=== PATIENT | male | born 1960 | race American Indian/Alaskan Native ===

== ENCOUNTER 2018-02-01 02:12 | Inpatient (IN) | payer MEDICAID ==
[2018-02-01] MEDS ORDERED: NACL 0.9% 1000 ML 1,000 ML IV ONE ×2 (04:04→04:35)
[2018-02-01 04:34] LABS: Basophils # (Auto) 0.1 K/mm3 (0.0-0.1); Basophils % (Auto) 1.3 % (0.0-1.8); Eosinophils # (Auto) 0.1 K/mm3 (0.0-0.4); Eosinophils % (Auto) 1.4 % (0.0-4.3); Hematocrit 44.5 % (35.5-45.6); Hemoglobin 15.3 gm/dl (11.8-15.2); Lymphocytes # (Auto) 2.8 K/mm3 (1.2-5.4); Lymphocytes % (Auto) 45.8 % (13.4-35.0); Mean Corpuscular HGB Conc 34 % (32-34); Mean Corpuscular Hemoglobin 34 pg (28-32); Mean Corpuscular Volume 100 fl (84-94); Monocytes # (Auto) 0.5 K/mm3 (0.0-0.8); Monocytes % (Auto) 7.5 % (0.0-7.3); Platelet Count 260 K/mm3 (140-440); Red Blood Count 4.46 M/mm3 (3.65-5.03); Red Cell Distribution Width 13.9 % (13.2-15.2)
[2018-02-01] MEDS ORDERED: ZOFRAN IV ONE (04:36)
--- NOTE | 2018-02-01 04:43 | Emergency Department Report ---
ED GI Bleed HPI - General Chief complaint: GI Bleed Stated complaint: NOSE BLEED Time Seen by Provider: 02/01/18 04:35 Source: patient Mode of arrival: Ambulatory Limitations: No Limitations - History of Present Illness Initial comments: Patient is 57 years old male was no significant positives medical history but patient does not remember the last time he saw a physician. Patient brought into the ER accompanied by his and daughter after he started vomiting bright blood last night around 9 PM and became more dizzy. Patient denied any melena or hematochezia. Patient and family admitted that he drinks alcohol daily. Patient denied any abdominal pain, chest pain, shortness of breath or fever. MD complaint: gross hematemesis -: Last night Context: alcohol abuse Associated Symptoms: nausea, vomiting - Related Data Home Medications Medication Instructions Recorded Confirmed Last Taken No Known Home Medications [No 02/01/18 02/01/18 Unknown Reported Home Medications] Allergies Allergy/AdvReac Type Severity Reaction Status Date / Time No Known Allergies Allergy Verified 02/01/18 04:37 ED Review of Systems ROS: Stated complaint: NOSE BLEED Other details as noted in HPI Comment: All other systems reviewed and negative Constitutional: denies: chills, fever Respiratory: denies: cough, orthopnea, shortness of breath, SOB with exertion, SOB at rest, wheezing Cardiovascular: denies: chest pain, palpitations, dyspnea on exertion Gastrointestinal: nausea, vomiting. denies: abdominal pain, diarrhea, constipation, hematemesis Genitourinary: denies: urgency, dysuria, frequency, hematuria, discharge Musculoskeletal: denies: back pain Neurological: denies: headache, weakness, numbness, paresthesias, confusion, abnormal gait ED Past Medical Hx - Past Medical History Previous Medical History?: No - Surgical History Past Surgical History?: No - Social History Smoking Status: Current Every Day Smoker Substance Use Type: Alcohol - Medications Home Medications: Home Medications Medication Instructions Recorded Confirmed Last Taken Type No Known Home Medications [No 02/01/18 02/01/18 Unknown History Reported Home Medications] ED Physical Exam - General Limitations: No Limitations General appearance: alert, anxious - Head Head exam: Present: atraumatic, normocephalic, normal inspection - Eye Eye exam: Present: normal appearance, PERRL - ENT ENT exam: Present: mucous membranes dry, other (dried blood in the mouth and nose) - Neck Neck exam: Present: normal inspection, full ROM. Absent: tenderness, meningismus, lymphadenopathy, thyromegaly - Respiratory Respiratory exam: Present: normal lung sounds bilaterally. Absent: respiratory distress, wheezes, rales, rhonchi, stridor, chest wall tenderness, accessory muscle use, decreased breath sounds, prolonged expiratory - Cardiovascular Cardiovascular Exam: Present: tachycardia. Absent: systolic murmur, diastolic murmur - GI/Abdominal GI/Abdominal exam: Present: soft, normal bowel sounds. Absent: distended, tenderness, guarding, rebound, rigid, organomegaly, mass, bruit, pulsatile mass , hernia - Extremities Exam Extremities exam: Present: normal inspection, full ROM, normal capillary refill - Back Exam Back exam: Present: normal inspection, full ROM. Absent: tenderness, CVA tenderness (R), CVA tenderness (L), muscle spasm, paraspinal tenderness, vertebral tenderness - Neurological Exam Neurological exam: Present: alert, oriented X3, CN II-XII intact, normal gait, reflexes normal - Skin Skin exam: Present: warm, intact, normal color ED Course Vital Signs 02/01/18 02/01/18 02/01/18 03:53 04:30 04:46 Temperature 97.7 F Pulse Rate 110 H 99 H Respiratory 18 24 20 Rate Blood Pressure 130/76 125/75 O2 Sat by Pulse 100 87 87 Oximetry - Reevaluation(s) Reevaluation #1: 02/01/18 05:11 I discussed the patient is Dr. Long from gastroenterology, informed about the patient and he stated that he will call the GI team for possible upper GI endoscopy. ED Medical Decision Making - Lab Data Result diagrams: 02/01/18 04:17 02/01/18 04:17 - Radiology Data Radiology results: report reviewed Referring Physician: MICHAEL CORBETT Patient Name: ELISABET ZAVALA Date of : 1960 Sex: Male Report Date: 2018-02-01 Report Status: Finalized Findings [facility] [address] [place] [address] XRay Report Signed Patient: ELISABET ZAVALA MR#: [id number] : 1960 Acct:[id number] Age/Sex: 57 / M ADM Date: 02/01/18 Loc: ED Attending Dr: Ordering Physician: MICHAEL CORBETT Date of Service: 02/01/18 Procedure(s): XR chest 1V ap Accession Number(s): [id number] cc: MICHAEL Corbin Time In Minutes: FINAL REPORT EXAM: XR CHEST 1V AP HISTORY: chest pain TECHNIQUE: AP portable view(s) of the chest obtained. PRIORS: None. FINDINGS: No mediastinal shift. Cardiac silhouette is not enlarged. No pneumothorax or effusion. Lower lung predominant interstitial prominence/reticulation. No focal airspace disease or acute skeletal finding. IMPRESSION: Lower lung predominant interstitial prominence/reticulation may be due to infection, edema or scarring/fibrosis. No focal airspace disease. Transcribed By: MB Dictated By: KURT HERNANDEZ MD Electronically Authenticated By: KURT HERNANDEZ MD Signed Date/Time: 02/01/18504 DD/ 4 TD/TT: 02/01/18504 - Medical Decision Making I discussed the patient is Dr. Sloan, he agreed to admit the patient to medical service. Critical Care Time: Yes Critical care time in (mins) excluding proc time.: 30 Critical care attestation.: If time is entered above; I have spent that time in minutes in the direct care of this critically ill patient, excluding procedure time. ED Disposition Clinical Impression: GI hemorrhage Disposition: OP ADMIT IP TO THIS HOSP Is pt being admited?: Yes Condition: Stable Referrals: PRIMARY CARE, [Primary Care Provider] - 3-5 Days Forms: Accompanied Note
[2018-02-01 04:44] LABS: INR 0.81 (0.87-1.13)
[2018-02-01 04:45] LABS: Partial Thromboplastin Time 24.7 Sec. (24.2-36.6)
[2018-02-01 04:52] LABS: Alanine Aminotransferase 47 units/L (7-56); Albumin 3.9 g/dL (3.9-5); BUN/Creatinine Ratio 14; Blood Urea Nitrogen 7 mg/dL (9-20); Calcium 9.3 mg/dL (8.4-10.2); Hemolysis Index 27; Lipase 49 units/L (13-60)
[2018-02-01] MEDS ORDERED: SANDOSTATIN IV ONE (05:00)
[2018-02-01] MEDS ORDERED: NACL 0.9% IV ONE (05:00)
--- NOTE | 2018-02-01 05:05 | XRay Report ---
FINAL REPORT EXAM: XR CHEST 1V AP HISTORY: chest pain TECHNIQUE: AP portable view(s) of the chest obtained. PRIORS: None. FINDINGS: No mediastinal shift. Cardiac silhouette is not enlarged. No pneumothorax or effusion. Lower lung predominant interstitial prominence/reticulation. No focal airspace disease or acute skeletal finding. IMPRESSION: Lower lung predominant interstitial prominence/reticulation may be due to infection, edema or scarring/fibrosis. No focal airspace disease.
[2018-02-01] MEDS: SandoSTATIN 500 MCG in NACL 0.9% 100 ML IV SCH (05:21)
[2018-02-01] MEDS: PROTONIX 80 MG in NACL 0.9% 100 ML IV SCH ×2 (05:21→19:05)
[2018-02-01] MEDS ORDERED: ZOFRAN IV PRN ×2 (06:24→08:01)
[2018-02-01] MEDS: NACL 0.9% 1000 ML 1,000 ML IV SCH ×3 (06:30→20:26)
[2018-02-01] MEDS ORDERED: WATER FOR IRRIG STERILE ONE (07:00)
[2018-02-01] MEDS ORDERED: WATER FOR IRRIG STERILE IR ONE (07:00)
--- NOTE | 2018-02-01 07:01 | Anesthesia Consultation ---
Anesthesia Consult and Med Hx Date of service: 02/01/18 - Airway Anesthetic Teeth Evaluation: Crowns (multiple gold crowns; denies loose teeth) ROM Head & Neck: Adequate Mental/Hyoid Distance: Adequate Mallampati Class: Class III Intubation Access Assessment: Possibly Difficult - Pulmonary Exam CTA: Yes - Cardiac Exam Cardiac Exam: RRR (tachycardic) - Pre-Operative Health Status ASA Pre-Surgery Classification: ASA3, Emergency Proposed Anesthetic Plan: General - Pulmonary Hx Smoking: Yes (1PPD) Hx Asthma: No Hx Respiratory Symptoms: Yes (hypoxic to 70s on RA; currently mid 90s on 35% venturi mask.) SOB: No Home Oxygen Therapy: No - Cardiovascular System Hx Hypertension: No Hx Heart Attack/AMI: No Hx Angina: No - Central Nervous System Hx Seizures: No CVA: No - Endocrine Hx Renal Disease: No Hx Cirrhosis: No Hx Liver Disease: Yes (Elevated AST; normal coags) Hx Insulin Dependent Diabetes: No Hx Non-Insulin Dependent Diabetes: No Hx Thyroid Disease: No - Hematic Hx Anemia: No - Other Systems Hx Alcohol Use: Yes (up to 3 6-packs daily for 10+ yrs) Hx Substance Use: No Hx Obesity: No - Additional Comments Anesthesia Medical History Comments: 57 yo man PMH EtOH abuse and smoking presenting with hemotosis/hematemesis starting 01/31 1900. Per ED RN, patient has been vomiting and coughing up blood since arrival and has put out 300cc of blood between [id number] today. Given ongoing hematemesis vs hemoptysis, would plan for GETA in OR for planned EGD procedure.
[2018-02-01] MEDS ORDERED: NACL 0.9% 1000 ML 1,000 ML ONE (07:19)
[2018-02-01] MEDS ORDERED: SUBLIMAZE ONE (07:19)
[2018-02-01] MEDS ORDERED: XYLOCAINE MPF 2% ONE (07:19)
[2018-02-01] MEDS ORDERED: QUELICIN ONE (07:19)
[2018-02-01] MEDS ORDERED: DIPRIVAN 10 MG/ML IV ONE (07:20)
[2018-02-01] MEDS ORDERED: VERSED ONE (07:20)
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
[2018-02-01 07:39] LABS: Basophils # (Auto) 0.1 K/mm3 (0.0-0.1); Basophils % (Auto) 0.8 % (0.0-1.8); Eosinophils % (Auto) 0.7 % (0.0-4.3); Hematocrit 33.2 % (35.5-45.6); Hemoglobin 11.8 gm/dl (11.8-15.2); Lymphocytes # (Auto) 1.5 K/mm3 (1.2-5.4); Lymphocytes % (Auto) 23.4 % (13.4-35.0); Mean Corpuscular HGB Conc 36 % (32-34); Mean Corpuscular Hemoglobin 36 pg (28-32); Mean Corpuscular Volume 100 fl (84-94); Monocytes # (Auto) 0.4 K/mm3 (0.0-0.8); Monocytes % (Auto) 6.5 % (0.0-7.3); Platelet Count 220 K/mm3 (140-440); Red Blood Count 3.33 M/mm3 (3.65-5.03); Red Cell Distribution Width 13.9 % (13.2-15.2)
--- NOTE | 2018-02-01 07:39 | History and Physical Report ---
CHIEF COMPLAINT: Vomiting of blood. HISTORY OF PRESENT ILLNESS: The patient is a 57-year-old male who presented with history of vomiting of blood. The patient's symptoms started around 9 p.m. last night and the patient was noted to be feeling dizzy. There was no history of any melena or hematochezia. The patient and family noted that the patient drank some alcohol prior to these symptoms: The patient drinks alcohol daily. There is no history of abdominal pain, no history of shortness of breath or chest pain, or fever. The patient was evaluated in the Emergency Room. PAST MEDICAL HISTORY: Pertinent for alcohol abuse. PAST SURGICAL HISTORY: Unremarkable. FAMILY HISTORY: Family history is noncontributory. SOCIAL HISTORY: The patient smokes cigarettes, drinks alcohol on a regular basis, and does not use illicit drugs. MEDICATIONS: The patient is not on any medication. ALLERGIES: There are no known drug allergies. REVIEW OF SYSTEMS: CONSTITUTIONAL: There is no fever, no chills, no diaphoresis. HEENT: There is no headache or sore throat. CARDIOVASCULAR SYSTEM: There is no chest pain or orthopnea. RESPIRATORY SYSTEM: There is no shortness of breath or cough. GASTROINTESTINAL SYSTEM: Hematemesis noted. No abdominal pain, no diarrhea, no cough, no hematuria or melena. NEUROLOGICAL SYSTEM: Dizziness present. No altered mental status. MUSCULOSKELETAL SYSTEM: There is no joint pain or swelling. DERMATOLOGICAL SYSTEM: There is no skin rash or itching. GENITOURINARY SYSTEM: There is no dysuria, hematuria, or flank pain. Rest of system review is normal. PHYSICAL EXAMINATION: GENERAL: At the time of exam, the patient was found to be alert, oriented x 3 and in mild distress due to hematemesis. VITAL SIGNS: At the time of initial presentation shows temperature of 97.7 degrees Fahrenheit, pulse of 110, respiration 18, blood pressure 130/76, O2 sat of 100% on oxygen. HEENT: Showed pupils to be equal, round, reactive to light and accommodating. Extraocular muscles are intact. The patient's mouth is covered with bright red blood. NECK: Neck is supple with no JVD or carotid bruit. CARDIOVASCULAR: Showed normal first and second heart sounds with no gallops or murmur. RESPIRATORY: Show good air entry on both sides of the lungs with no abnormal breath sounds. GASTROINTESTINAL: Show abdomen to be full, soft, nontender with no organomegaly or rigidity. NEUROLOGIC: Shows no focal deficit. MUSCULOSKELETAL: Show no joint swelling or tenderness. DERMATOLOGICAL: Show no skin rash. GENITOURINARY: Showing no costovertebral angle tenderness. PERTINENT LABORATORY AND IMAGING STUDIES: The patient had chest x-ray done that shows lower lung predominant interstitial prominence/ reticulation which may be due to fibrosis with no focal airspace disease. The patient's lab result shows CBC with normal white count, elevated hemoglobin of 15.3, normal hematocrit of 44.5, and high MCV of 100. CBC differential shows elevated lymphocyte count of 45.8%. The patient's coagulation studies were remarkable. Chemistry was unremarkable. The patient's liver transaminases show elevated AST of 107 and normal ALT of 47 consistent with alcohol abuse. The patient's toxicology showed a high alcohol level of 0.31. DIAGNOSIS: Gastrointestinal bleed. PLAN OF CARE: 1. The patient will be admitted to ICU because of active gastrointestinal bleed. We will continue the GI consult with Dr. Bang requested by the Emergency Room physician with the plan of possible endoscopy this morning. 2. We will have hemoglobin and hematocrit checked every 6 hours x 3 more levels. 3. The patient will continue IV octreotide started in the Emergency Room and also continue IV Protonix drip ordered in the Emergency Room. The patient will be on IV Zofran 4 mg every 6 hours as needed for nausea and vomiting and will be on IV normal saline at 150 mL an hour. 4. The patient will be on oxygen by Venturi mask as started in the Emergency Room. Further management of the patient's condition will be dependent on GI consult with plan of endoscopy this morning. The patient will have critical consult with Dr. Zhao for ICU admission for active GI bleed. JOB# [id number] OCN/NTS MTDD
[2018-02-01] MEDS ORDERED: AMIDATE IV ONE (07:43)
--- NOTE | 2018-02-01 07:59 | Anesthesia Day of Surgery ---
Anesthesia Day of Surgery - Day of Surgery Patient Examined: Yes Patient H&P Reviewed: Yes Patient is NPO: Yes
[2018-02-01] MEDS ORDERED: DILAUDID IV PRN (08:01)
--- NOTE | 2018-02-01 08:11 | Post Operative Note ---
Pre-op diagnosis: GI bleed Post-op diagnosis: other (Nose bleed) Findings: 1. Normal EGD with no active bleeding. Good visualization, quincy of greater curve of gastric body precluded by presence of clot. 2. Blood actively running out of nose during EGD. Procedure: EGD Anesthesia: GETA Surgeon: SOFIE VAZQUEZ Estimated blood loss: other (10 ml) Pathology: none Condition: stable Disposition: PACU (Pt needs nasal pack and ENT consult.)
--- NOTE | 2018-02-01 08:24 | Operative Report ---
PROCEDURE: Upper endoscopy. PREOPERATIVE DIAGNOSIS: Gastrointestinal bleed. POSTOPERATIVE DIAGNOSIS: Nosebleed. SEDATION: General anesthesia with intubation. HISTORY: The patient is a 57-year-old man who is alcoholic. He came in with a history of having vomited blood 4 times and coughing blood. He had blood coming out of his nose as well. His hemoglobin is stable at 15 and platelet count is normal. The procedure, indications, risks, and benefits were explained and consent was obtained from the patient's . The patient was placed in left lateral decubitus position and sedated. He was intubated. Video upper endoscope was passed through the mouth and oropharynx into the descending duodenum and then gradually withdrawn with close inspection of mucosa. FINDINGS: 1. Normal appearing esophagus with sharp Z-line located 44 cm from incisors. 2. Normal appearing gastric antrum, fundus, body, and cardia. although good visualization was precluded of the greater curvature of the gastric body due to the presence of clot. No fresh or active blood was noted in the stomach. 3. Normal appearing duodenal bulb and duodenum. The patient tolerated the procedure well without immediate complications. IMPRESSION: 1. Normal upper endoscopy, though poor visualization. No source of blood loss identified. 2. The patient had active bleeding from nose during time of endoscopy while intubated and on his side. RECOMMENDATIONS: 1. ENT consultation and packing of nose. 2. Monitor H and H and transfuse as needed. JOB# [id number] HRC/NTS
[2018-02-01] MEDS ORDERED: NEO SYNEPHRINE/NS Syringe(OR USE) IV ONE ×2 (08:28→08:51)
[2018-02-01] MEDS ORDERED: NACL 0.9% 1000 ML 1,000 ML IV SCH (09:00)
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
--- NOTE | 2018-02-01 09:32 | Post Anesthesia Evaluation ---
- Post Anesthesia Evaluation Airway Patent: Yes (intubated, due to airway bleeding) Stable Respiratory Function: Yes Nausea/Vomiting: No Temp > 96.8F: Yes Pain Manageable: Yes Adequeate Hydration: Yes Anesthesia Complications: No
--- NOTE | 2018-02-01 09:36 | Progress Note ---
Subjective Date of service: 02/01/18 Principal diagnosis: upper airway bleeding Interval history: Pt presented to ED with upper gi/ airway bleeding. Intubated in OR for upper endoscopy procedure to find source of bleeding. Anesthesia decided to keep patient intubated in ICU due to unknown source of bleeding, and to protect the airway. Copious amount of bleeding from mouth and nares noted. Both nares were packed with phenyleprine . Intubated in OR with 7.5 ETT , EBBS, sats 100% in OR. transferred to ICU. Stable, given 2mg of versed, and 100 mcg of fentanyl for procedure. Intubated rapid sequence with SUCC. Gi unable to determine the source of bleed. Objective - Constitutional Vitals: Vital Signs - 12hr 02/01/18 02/01/18 02/01/18 03:53 04:30 04:45 Temperature 97.7 F Pulse Rate 110 H 99 H 98 H Respiratory 18 24 25 H Rate Blood Pressure 130/76 125/75 125/75 O2 Sat by Pulse 100 87 95 Oximetry 02/01/18 02/01/18 02/01/18 04:46 05:01 05:15 Temperature Pulse Rate 97 H 87 Respiratory 20 19 20 Rate Blood Pressure 136/92 135/83 O2 Sat by Pulse 87 89 70 L Oximetry 02/01/18 02/01/18 02/01/18 05:30 05:45 06:00 Temperature Pulse Rate 99 H 104 H 96 H Respiratory 17 15 22 Rate Blood Pressure 133/89 133/89 135/76 O2 Sat by Pulse 83 L 85 95 Oximetry 02/01/18 02/01/18 02/01/18 06:15 06:45 07:00 Temperature Pulse Rate 125 H 113 H 107 H Respiratory 14 29 H 25 H Rate Blood Pressure 135/76 143/128 104/73 O2 Sat by Pulse 96 96 96 Oximetry 02/01/18 07:15 Temperature Pulse Rate 113 H Respiratory 28 H Rate Blood Pressure 93/65 O2 Sat by Pulse 96 Oximetry - Labs CBC & Chem 7: 02/01/18 07:18 02/01/18 04:17 Labs: Abnormal lab results 02/01/18 02/01/18 02/01/18 Range/Units 04:17 04:17 04:17 RBC (3.65-5.03) M/mm3 Hgb 15.3 H (11.8-15.2) gm/dl Hct (35.5-45.6) % MCV 100 H (84-94) fl MCH 34 H (28-32) pg MCHC (32-34) % Lymph % (Auto) 45.8 H (13.4-35.0) % Trinity % (Auto) 7.5 H (0.0-7.3) % PT 11.6 L (12.2-14.9) Sec. INR 0.81 L (0.87-1.13) BUN 7 L (9-20) mg/dL Creatinine 0.5 L (0.8-1.5) mg/dL Glucose 107 H (75-100) mg/dL AST 107 H (5-40) units/L Plasma/Serum Alcohol (0-0.07) % 02/01/18 02/01/18 Range/Units 04:56 07:18 RBC 3.33 L (3.65-5.03) M/mm3 Hgb (11.8-15.2) gm/dl Hct 33.2 L D (35.5-45.6) % MCV 100 H (84-94) fl MCH 36 H (28-32) pg MCHC 36 H (32-34) % Lymph % (Auto) (13.4-35.0) % [place] % (Auto) (0.0-7.3) % PT (12.2-14.9) Sec. INR (0.87-1.13) BUN (9-20) mg/dL Creatinine (0.8-1.5) mg/dL Glucose (75-100) mg/dL AST (5-40) units/L Plasma/Serum Alcohol 0.31 H (0-0.07) %
[2018-02-01] MEDS ORDERED: DIPRIVAN 10 MG/ML 1,000 MG/100 ML BOTTLE IV ONE (10:21)
[2018-02-01] MEDS ORDERED: VASELINE LIP THERAPY TP PRN (10:29)
[2018-02-01] MEDS ORDERED: ARTIFICIAL TEARS OPHTH OINT OU PRN (10:29)
[2018-02-01] MEDS ORDERED: NACL 0.9% 500 ML IV SCH (11:00)
[2018-02-01] MEDS: DIPRIVAN 10 MG/ML 1,000 MG/100 ML BOTTLE IV SCH ×3 (11:01→21:47)
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
[2018-02-01 13:27] LABS: Hematocrit 32.2 % (35.5-45.6); Hemoglobin 11.1 gm/dl (11.8-15.2)
[2018-02-01 17:35] LABS: Hematocrit 31.2 % (35.5-45.6); Hemoglobin 10.7 gm/dl (11.8-15.2)
[2018-02-01] MEDS: ATIVAN IV PRN (20:16)
[2018-02-01] MEDS ORDERED: MIDAZOLAM 100 MG in NACL 0.9% 80 ML IV SCH (21:00)
[2018-02-02 00:40] LABS: Hematocrit 28.3 % (35.5-45.6); Hemoglobin 9.8 gm/dl (11.8-15.2)
--- NOTE | 2018-02-02 02:19 | XRay Report ---
FINAL REPORT EXAM: XR CHEST 1V AP HISTORY: follow up respiratory failure TECHNIQUE: Single AP portable radiograph of the chest was obtained. PRIORS: Chest radiographs dated 01/31/2018. FINDINGS: Interval placement of endotracheal tube. Tip of the endotracheal tube is estimated at 3.5 cm proximal to the diana. Coarse, bilateral interstitial pulmonary markings which are most prominent the right midlung and left lung base. No large pleural effusion. No significant enlargement of the cardiac silhouette. No acute osseous abnormality. IMPRESSION: Interval placement of endotracheal tube, tip approximately 3.5 cm proximal to the diana although tip is partially obscured. Mild interval increase in the right midlung and left greater than right basilar opacities. Differential includes infection, edema or fibrosis.
[2018-02-02] MEDS: NACL 0.9% 1000 ML 1,000 ML IV SCH ×2 (02:43→09:31)
[2018-02-02] MEDS: PROTONIX 80 MG in NACL 0.9% 100 ML IV SCH (03:41)
[2018-02-02] MEDS: SandoSTATIN 500 MCG in NACL 0.9% 100 ML IV SCH (03:41)
[2018-02-02] MEDS: DIPRIVAN 10 MG/ML 1,000 MG/100 ML BOTTLE IV SCH ×2 (03:42→09:36)
--- NOTE | 2018-02-02 09:25 | Gastroenterology Progress Note ---
<ANGELA CARY - Last Filed: 02/02/18 09:28> Assessment and Plan 1.Hematemesis -HGB 9.8 -continue to monitor H/H and transfuse as needed -hold blood thinning medications -s/p EGD with normal results, however blood actively running out of nose during procedure -etiology- most likely swallowed blood due to nose bleed -ENT consult recommended -nasal packing currently in place with no active signs of bleeding -okay to d/c octreotide drip -transition PPI drip to IV daily -continue supportive care 2.ETOH abuse -monitor for DTs -alcohol abstinence discussed with family 3.elevated LFTs -AST 107 (ALT 47, alk phos 55, T.dhara 0.20, lipase 49- WNL) -etiology- mostly likely 2/2 alcohol abuse -will order hepatitis panel and abd U/S -will follow Subjective Date of service: 02/02/18 Principal diagnosis: UGIB Interval history: Patient currently intubated in ICU. Nasal packing in place with no active signs of bleeding overnight or this am per nursing. Objective - Constitutional Vitals: Temp Pulse Resp BP Pulse Ox 99.2 F 106 H 20 135/79 100 02/02/18 08:00 02/02/18 08:20 02/02/18 08:15 02/02/18 08:20 02/02/18 08:20 General appearance: no acute distress, other (sedated and intubated ) - Respiratory Respiratory: bilateral: CTA (anterior) - Cardiovascular Rhythm: other (tachycardia) Heart Sounds: Present: S1 & S2 - Gastrointestinal General gastrointestinal: Present: soft, non-distended, normal bowel sounds - Neurologic Neurological: other (unable to assess) - Labs CBC & Chem 7: 02/02/18 00:17 02/01/18 04:17 Labs: Laboratory Results - last 24 hr 02/01/18 02/01/18 02/01/18 13:04 14:41 17:22 Hgb 11.1 L 10.7 L Hct 32.2 L 31.2 L POC ABG pH 7.330 L POC ABG pCO2 41.0 POC ABG pO2 114 H POC ABG HCO3 21.6 POC ABG Total CO2 23 POC ABG O2 Sat 98 POC ABG Base Excess -4 FiO2 40 02/02/18 02/02/18 00:17 05:28 Hgb 9.8 L Hct 28.3 L POC ABG pH 7.510 H POC ABG pCO2 36.4 POC ABG pO2 129 H POC ABG HCO3 29.1 POC ABG Total CO2 30 POC ABG O2 Sat 99 POC ABG Base Excess 6 FiO2 35 <FRIEDMANHOA SOARES Ruiz - Last Filed: 02/02/18 13:01> Assessment and Plan pt seen and examined. agree with note as above. will d/c octreotide and PPI drip as pt does not have signs of UGI bleeding (nose bleed). US pending for elevated liver enzymes (likely due to alcohol given pattern and history). Objective - Constitutional Vitals: Temp Pulse Resp BP Pulse Ox 99.2 F 111 H 20 135/87 100 02/02/18 08:00 02/02/18 11:15 02/02/18 11:15 02/02/18 11:15 02/02/18 11:15 - Labs CBC & Chem 7: 02/02/18 00:17 02/01/18 04:17 Labs: Laboratory Results - last 24 hr 02/01/18 02/01/18 02/01/18 13:04 14:41 17:22 Hgb 11.1 L 10.7 L Hct 32.2 L 31.2 L POC ABG pH 7.330 L POC ABG pCO2 41.0 POC ABG pO2 114 H POC ABG HCO3 21.6 POC ABG Total CO2 23 POC ABG O2 Sat 98 POC ABG Base Excess -4 FiO2 40 02/02/18 02/02/18 00:17 05:28 Hgb 9.8 L Hct 28.3 L POC ABG pH 7.510 H POC ABG pCO2 36.4 POC ABG pO2 129 H POC ABG HCO3 29.1 POC ABG Total CO2 30 POC ABG O2 Sat 99 POC ABG Base Excess 6 FiO2 35
[2018-02-02] MEDS: PROTONIX IV SCH (09:41)
--- NOTE | 2018-02-02 11:34 | Progress Note ---
Assessment and Plan Acute Hypoxemic Respiratory Failure on MVS Massive Epistaxis (Post Traumatic) s/p EGD no evidence of GIB H/O EtOH Abuse disorder Anemia (Macrocytic) Hypokalemia -Monitor Hand H and hemodynamics closely -Analgesia and agitation management( propofol and fentanyl) -Initiate SATs and SBTs today -Supportive transfusions to keep HgB>7g/dL - ENT consult placed for epistaxis - nutritional support if not extubated today, place OGT and start enteric feeding - VAP bundle addressed - continue GI prophylaxis - EGD reviewed ; no active bleeding - continue other care per attending / other consultants - watch closely for DT's -replace electrolytes as indicated The high probability of a clinically significant, sudden or life-threatening deterioration of the respiratory, hematologic system(s) required my full and direct attention, intervention and personal management. The aggregate critical care time was [35] minutes without overlap. Time includes spent on; [x] Data Review and interpretation [x] Patient assessment and monitoring of vital signs [x] Documentation [x] Medication orders and management Subjective Date of service: 02/02/18 Principal diagnosis: UGIB Interval history: Patient is seen today for: Acute GI Bleeding; EtOH Abuse; Hematemesis; Massive Epistaxis Seen and examined at bedside; 24hour events reviewed; nursing and respiratory care staff consulted; no adverse overnight events reported to me; resting in bed ; remains on MVS; rhino remains in nostrils without active bleeding; No acute overnight events, remains sedated. Discussed in ICU-IDT rounds Objective - Exam Narrative Exam: Constitutional: no acute distress, sedated, other (middle aged AAM normocephalic and atraumatic on MVS) Eyes: non-icteric ENT: oropharynx moist, other (ETT 23 cm TRANG) Neck: supple, no lymphadenopathy, no JVD, other (Rhinos in both nostrils) Effort: mildly labored Ascultation: Bilateral: diminished breath sounds, rhonchi (scant) Percussion: Bilateral: not dull Cardiovascular: regular rate and rhythm, other (No R/M) Gastrointestinal: normoactive bowel sounds, soft, non-tender, non-distended, other (No palpable HSM) Integumentary: other (normal turgor) Extremities: no cyanosis, no edema, pulses normal, no ischemia or petechiae Neurologic: non-focal exam (grossly), pupils equal and round, motor strength normal ( moves all extremities and withdraws to pain) Vital Signs - 12hr 02/01/18 02/01/18 02/01/18 23:43 23:45 23:46 Temperature Pulse Rate 125 H 126 H 125 H Pulse Rate [ Apical] Respiratory 20 21 20 Rate Blood Pressure 120/77 112/82 112/82 O2 Sat by Pulse 100 100 100 Oximetry 02/01/18 02/02/18 02/02/18 23:59 00:00 00:15 Temperature 99.9 F H Pulse Rate 123 H 122 H Pulse Rate [ 123 H Apical] Respiratory 20 20 Rate Blood Pressure 121/77 118/77 O2 Sat by Pulse 100 96 Oximetry 02/02/18 02/02/18 02/02/18 00:30 00:45 01:00 Temperature Pulse Rate 122 H 121 H 120 H Pulse Rate [ Apical] Respiratory 20 20 20 Rate Blood Pressure 125/76 110/82 121/78 O2 Sat by Pulse 99 99 99 Oximetry 02/02/18 02/02/18 02/02/18 01:15 01:30 01:45 Temperature Pulse Rate 120 H 119 H 122 H Pulse Rate [ Apical] Respiratory 20 20 20 Rate Blood Pressure 119/78 119/78 131/81 O2 Sat by Pulse 99 100 99 Oximetry 02/02/18 02/02/18 02/02/18 02:00 02:15 02:30 Temperature Pulse Rate 119 H 119 H 119 H Pulse Rate [ Apical] Respiratory 20 20 20 Rate Blood Pressure 131/81 120/77 111/78 O2 Sat by Pulse 100 100 100 Oximetry 02/02/18 02/02/18 02/02/18 02:45 03:00 03:15 Temperature Pulse Rate 117 H 119 H 119 H Pulse Rate [ Apical] Respiratory 20 20 20 Rate Blood Pressure 110/80 124/84 123/83 O2 Sat by Pulse 100 100 100 Oximetry 02/02/18 02/02/18 02/02/18 03:30 03:45 03:49 Temperature 99.8 F H Pulse Rate 117 H 118 H Pulse Rate [ Apical] Respiratory 20 20 Rate Blood Pressure 123/83 124/84 O2 Sat by Pulse 100 100 Oximetry 02/02/18 02/02/18 02/02/18 04:00 04:13 04:15 Temperature Pulse Rate 118 H 114 H 113 H Pulse Rate [ 118 H Apical] Respiratory 20 20 Rate Blood Pressure 122/79 133/79 133/79 O2 Sat by Pulse 100 100 100 Oximetry 02/02/18 02/02/18 02/02/18 04:30 04:45 05:00 Temperature Pulse Rate 114 H 115 H 114 H Pulse Rate [ Apical] Respiratory 20 20 20 Rate Blood Pressure 131/86 130/89 134/89 O2 Sat by Pulse 100 99 99 Oximetry 02/02/18 02/02/18 02/02/18 05:15 05:30 05:45 Temperature Pulse Rate 110 H 113 H 111 H Pulse Rate [ Apical] Respiratory 20 20 20 Rate Blood Pressure 127/85 122/80 112/79 O2 Sat by Pulse 99 100 100 Oximetry 02/02/18 02/02/18 02/02/18 06:00 06:15 06:30 Temperature Pulse Rate 110 H 108 H 106 H Pulse Rate [ Apical] Respiratory 20 20 20 Rate Blood Pressure 117/80 120/77 122/81 O2 Sat by Pulse 100 99 100 Oximetry 02/02/18 02/02/18 02/02/18 06:45 07:00 07:15 Temperature Pulse Rate 106 H 108 H 106 H Pulse Rate [ Apical] Respiratory 20 20 20 Rate Blood Pressure 129/80 121/75 121/76 O2 Sat by Pulse 99 100 100 Oximetry 02/02/18 02/02/18 02/02/18 07:30 07:45 08:00 Temperature 99.2 F Pulse Rate 108 H 106 H 105 H Pulse Rate [ 106 H Apical] Respiratory 20 20 20 Rate Blood Pressure 125/83 121/82 135/79 O2 Sat by Pulse 100 100 100 Oximetry 02/02/18 02/02/18 02/02/18 08:15 08:20 08:30 Temperature Pulse Rate 106 H 106 H 106 H Pulse Rate [ Apical] Respiratory 20 20 Rate Blood Pressure 135/79 122/82 O2 Sat by Pulse 100 100 100 Oximetry 02/02/18 02/02/18 02/02/18 08:45 09:00 09:15 Temperature Pulse Rate 106 H 107 H 106 H Pulse Rate [ Apical] Respiratory 20 20 20 Rate Blood Pressure 133/79 134/82 129/81 O2 Sat by Pulse 100 100 100 Oximetry 02/02/18 02/02/18 02/02/18 09:30 09:45 10:00 Temperature Pulse Rate 106 H 105 H 111 H Pulse Rate [ Apical] Respiratory 20 20 20 Rate Blood Pressure 132/84 126/82 132/88 O2 Sat by Pulse 100 99 100 Oximetry 02/02/18 02/02/18 02/02/18 10:15 10:30 10:45 Temperature Pulse Rate 109 H 110 H 110 H Pulse Rate [ Apical] Respiratory 20 20 20 Rate Blood Pressure 130/84 130/86 133/88 O2 Sat by Pulse 100 99 99 Oximetry 02/02/18 02/02/18 11:00 11:15 Temperature Pulse Rate 111 H 111 H Pulse Rate [ Apical] Respiratory 20 20 Rate Blood Pressure 134/84 135/87 O2 Sat by Pulse 100 100 Oximetry CBC and BMP: 02/07/18 02:15 02/07/18 02:15 ABG, PT/INR, D-dimer: ABG POC ABG pH 7.510 (7.35-7.45) H 02/02/18 05:28 POC ABG pCO2 36.4 (35-45) 02/02/18 05:28 POC ABG pO2 129 (80-105) H 02/02/18 05:28 POC ABG HCO3 29.1 02/02/18 05:28 POC ABG Total CO2 30 02/02/18 05:28 POC ABG O2 Sat 99 02/02/18 05:28 PT/INR, D-dimer PT 11.6 Sec. (12.2-14.9) L 02/01/18 04:17 INR 0.81 (0.87-1.13) L 02/01/18 04:17 Abnormal lab findings: Abnormal Labs 02/01/18 02/01/18 02/01/18 04:17 04:17 04:17 RBC Hgb 15.3 H Hct MCV 100 H MCH 34 H MCHC Lymph % (Auto) 45.8 H [place] % (Auto) 7.5 H PT 11.6 L INR 0.81 L POC ABG pH POC ABG pO2 BUN 7 L Creatinine 0.5 L Glucose 107 H AST 107 H Plasma/Serum Alcohol 02/01/18 02/01/18 02/01/18 04:56 07:18 13:04 RBC 3.33 L Hgb 11.1 L Hct 33.2 L D 32.2 L MCV 100 H MCH 36 H MCHC 36 H Lymph % (Auto) [place] % (Auto) PT INR POC ABG pH POC ABG pO2 BUN Creatinine Glucose AST Plasma/Serum Alcohol 0.31 H 02/01/18 02/01/18 02/02/18 14:41 17:22 00:17 RBC Hgb 10.7 L 9.8 L Hct 31.2 L 28.3 L MCV MCH MCHC Lymph % (Auto) [place] % (Auto) PT INR POC ABG pH 7.330 L POC ABG pO2 114 H BUN Creatinine Glucose AST Plasma/Serum Alcohol 02/02/18 05:28 RBC Hgb Hct MCV MCH MCHC Lymph % (Auto) [place] % (Auto) PT INR POC ABG pH 7.510 H POC ABG pO2 129 H BUN Creatinine Glucose AST Plasma/Serum Alcohol Chest x-ray: image reviewed Allied health notes reviewed: RT
[2018-02-02] MEDS: D5/0.45NS 1,000 ML IV SCH (11:47)
--- NOTE | 2018-02-02 18:13 | Ultrasound Report ---
FINAL REPORT EXAM: US ABDOMEN COMPLETE HISTORY: elevated LFTs TECHNIQUE: Grayscale and color-flow imaging of the abdomen was performed. Comparison: None FINDINGS: Pancreas: The posterior body and tail of the pancreas are not well visualized due to artifact. The visualized portion the pancreas is unremarkable. The pancreatic duct is normal caliber (2.5 millimeters). There is a nonshadowing echogenic focus in the region of the pancreatic duct that measures approximately 3 millimeters. This is of unclear etiology. Possible small calcification. Upper abdominal aorta: (2.6 centimeters). Liver: Demonstrates homogeneous echogenicity. There is no demonstration of a focal mass. Right kidney: Measures 11.2 centimeters in the maximal craniocaudal dimension. There is no demonstration of hydronephrosis, renal calculi or renal mass. Gallbladder: Moderately distended and contains gallstones. The gallbladder wall is normal thickness (2.1 millimeters). There is no definite evidence of pericholecystic fluid. Common bile duct: Normal caliber (3.2 millimeters). Left kidney: Measures 11.4 centimeters in the maximal craniocaudal dimension. There is no demonstration of hydronephrosis, renal calculi or solid mass. There appears to be an approximately 12 millimeter left renal cyst. No free fluid is demonstrated in the upper abdomen. IMPRESSION: 1. Gallstones within the gallbladder. No ultrasound evidence of acute cholecystitis. 2. Left renal cyst. No evidence of hydronephrosis. 3. Upper abdominal aorta upper limits of normal caliber to mildly dilated. 4. Possible small calcification in the region of the normal caliber pancreatic duct. The pancreas is incompletely imaged. If further imaging is required, CT abdomen may be helpful.
[2018-02-03] MEDS: D5/0.45NS 1,000 ML IV SCH ×2 (00:48→20:27)
[2018-02-03 05:17] LABS: Basophils # (Auto) 0.1 K/mm3 (0.0-0.1); Basophils % (Auto) 0.7 % (0.0-1.8); Eosinophils % (Auto) 0.3 % (0.0-4.3); Hemoglobin 8.6 gm/dl (11.8-15.2); Lymphocytes # (Auto) 1.4 K/mm3 (1.2-5.4); Lymphocytes % (Auto) 10.9 % (13.4-35.0); Mean Corpuscular HGB Conc 35 % (32-34); Mean Corpuscular Hemoglobin 34 pg (28-32); Mean Corpuscular Volume 100 fl (84-94); Monocytes # (Auto) 0.7 K/mm3 (0.0-0.8); Monocytes % (Auto) 5.8 % (0.0-7.3); Platelet Count 123 K/mm3 (140-440); Red Blood Count 2.51 M/mm3 (3.65-5.03); Red Cell Distribution Width 13.3 % (13.2-15.2)
--- NOTE | 2018-02-03 05:23 | XRay Report ---
FINAL REPORT PROCEDURE: XR CHEST 1V AP TECHNIQUE: Chest radiograph anteroposterior view. CPT 59152 HISTORY: follow up respiratory failure COMPARISON: No prior studies are available for comparison. FINDINGS: Heart: Normal. Mediastinum/Vessels: Normal. Lungs/Pleural space: The lungs are expanded. There are right upper lobe infiltrates and left lower lobe infiltrates. There are no effusions or pneumothoraces.. Bony thorax: Bony structures are intact.. Life support devices: There is an endotracheal tube in the mid trachea.. IMPRESSION: Heart size is normal. The lungs are expanded. There are right upper lobe infiltrates and left lower lobe infiltrates. There are no effusions or pneumothoraces.. There is an endotracheal tube in the mid trachea..
[2018-02-03 05:42] LABS: Alanine Aminotransferase 21 units/L (7-56); Albumin 2.6 g/dL (3.9-5); BUN/Creatinine Ratio 12; Blood Urea Nitrogen 6 mg/dL (9-20); Calcium 7.8 mg/dL (8.4-10.2); Hemolysis Index 5
[2018-02-03] MEDS: DIPRIVAN 10 MG/ML 1,000 MG/100 ML BOTTLE IV SCH ×2 (05:44→19:32)
[2018-02-03 05:54] LABS: Hepatitis A Antibody IgM Non-Reactive (NonReactive); Hepatitis B Core IgM Non-Reactive (NonReactive); Hepatitis B Surface Antigen Non-Reactive (Negative); Hepatitis C Virus Antibody Reactive (NonReactive)
--- NOTE | 2018-02-03 09:08 | Progress Note ---
Assessment and Plan Acute Hypoxemic Respiratory Failure on MVS Massive Epistaxis (Post Traumatic) Possible G.I. Bleed H/O EtOH Abuse Anemia (Macrocytic) Hypokalemia - reduce set rate to 12/min and reduced TV to 450 mls - begin daiys SBT's soon thereafter - ABG after 2 hours on PSV - continue daily SAT's - ENT consult placed for epistaxis - place OGT and begin tube feeds - stop IVF - nutrition consult placed - VAP bundle addressed - replace potassium and check Magnesium - continue GI prophylaxis - EGD reviewed ; no active bleeding (manage per GI recs otherwise) - continue other care per attending / other consultants - watch closely for DT's .... re-evaluate in am & prn The high probability of a clinically significant, sudden or life-threatening deterioration of the respiratory, hematologic system(s) required my full and direct attention, intervention and personal management. The aggregate critical care time was [40] minutes without overlap. Time includes spent on; [x] Data Review and interpretation [x] Patient assessment and monitoring of vital signs [x] Documentation [x] Medication orders and management Subjective Date of service: 02/03/18 Principal diagnosis: Acute GI Bleeding; EtOH Abuse; Hematemesis Interval history: Patient is seen today for: Acute GI Bleeding; EtOH Abuse; Hematemesis; Massive Epistaxis Seen and examined at bedside; 24hour events reviewed; nursing and respiratory care staff consulted; no adverse overnight events reported to me; resting in bed ; remains on MVS; rhino remains in nostrils without active bleeding; he nods his head "NO" to pain question Objective Vital Signs - 12hr 02/02/18 02/02/18 02/02/18 21:15 21:30 21:45 Temperature Pulse Rate 116 H 118 H 119 H Pulse Rate [ Apical] Pulse Rate [ From Monitor] Respiratory 21 21 20 Rate Blood Pressure 125/78 129/79 122/81 O2 Sat by Pulse 98 99 97 Oximetry 02/02/18 02/02/18 02/02/18 22:00 22:15 22:30 Temperature Pulse Rate 117 H 112 H 104 H Pulse Rate [ Apical] Pulse Rate [ From Monitor] Respiratory 20 17 20 Rate Blood Pressure 119/80 110/72 119/74 O2 Sat by Pulse 100 100 100 Oximetry 08/22/18 08/22/18 08/22/18 22:45 23:00 23:15 Temperature Pulse Rate 113 H 108 H 112 H Pulse Rate [ Apical] Pulse Rate [ From Monitor] Respiratory 20 20 20 Rate Blood Pressure 123/75 119/77 116/77 O2 Sat by Pulse 98 100 99 Oximetry 02/02/1818 18 23:19 23:30 23:45 Temperature Pulse Rate 111 H 101 H 103 H Pulse Rate [ Apical] Pulse Rate [ From Monitor] Respiratory 20 20 20 Rate Blood Pressure 116/77 119/76 124/72 O2 Sat by Pulse 100 100 99 Oximetry 02/03/18 02/03/18 02/03/18 00:00 00:15 00:28 Temperature 99.6 F Pulse Rate 103 H 104 H 102 H Pulse Rate [ 103 H Apical] Pulse Rate [ From Monitor] Respiratory 20 20 Rate Blood Pressure 124/72 116/73 120/73 O2 Sat by Pulse 100 99 99 Oximetry 02/03/18 02/03/18 02/03/18 00:30 00:45 01:00 Temperature Pulse Rate 104 H 104 H 104 H Pulse Rate [ Apical] Pulse Rate [ From Monitor] Respiratory 20 20 20 Rate Blood Pressure 120/73 116/71 116/71 O2 Sat by Pulse 100 99 100 Oximetry 02/03/18 02/03/18 02/03/18 01:15 01:30 01:45 Temperature Pulse Rate 108 H 105 H 107 H Pulse Rate [ Apical] Pulse Rate [ From Monitor] Respiratory 20 16 20 Rate Blood Pressure 117/75 132/72 120/75 O2 Sat by Pulse 100 100 100 Oximetry 02/03/18 02/03/18 02/03/18 02:00 02:15 02:30 Temperature Pulse Rate 106 H 111 H 104 H Pulse Rate [ Apical] Pulse Rate [ From Monitor] Respiratory 20 20 20 Rate Blood Pressure 118/74 132/80 116/71 O2 Sat by Pulse 100 100 100 Oximetry 02/03/18 02/03/18 02/03/18 02:45 03:00 03:15 Temperature Pulse Rate 104 H 103 H 103 H Pulse Rate [ Apical] Pulse Rate [ From Monitor] Respiratory 20 20 20 Rate Blood Pressure 113/72 118/72 115/72 O2 Sat by Pulse 100 100 99 Oximetry 02/03/18 02/03/18 02/03/18 03:30 03:45 04:00 Temperature Pulse Rate 104 H 103 H 104 H Pulse Rate [ 105 H Apical] Pulse Rate [ From Monitor] Respiratory 20 20 20 Rate Blood Pressure 120/73 121/72 119/73 O2 Sat by Pulse 99 99 100 Oximetry 02/03/18 02/03/18 02/03/18 04:15 04:31 04:45 Temperature Pulse Rate 108 H 103 H 103 H Pulse Rate [ Apical] Pulse Rate [ From Monitor] Respiratory 20 20 20 Rate Blood Pressure 131/75 131/75 131/75 O2 Sat by Pulse 99 100 99 Oximetry 02/03/18 02/03/18 02/03/18 05:00 05:15 05:30 Temperature Pulse Rate 100 H 100 H 103 H Pulse Rate [ Apical] Pulse Rate [ From Monitor] Respiratory 17 20 18 Rate Blood Pressure 124/80 126/84 119/79 O2 Sat by Pulse 100 100 Oximetry 02/03/18 02/03/18 02/03/18 05:45 06:00 06:15 Temperature Pulse Rate 104 H 104 H 99 H Pulse Rate [ Apical] Pulse Rate [ From Monitor] Respiratory 20 20 20 Rate Blood Pressure 120/77 131/82 128/80 O2 Sat by Pulse 100 100 100 Oximetry 02/03/18 02/03/18 02/03/18 06:30 06:45 06:55 Temperature Pulse Rate 105 H 103 H 99 H Pulse Rate [ Apical] Pulse Rate [ From Monitor] Respiratory 18 20 Rate Blood Pressure 142/82 118/76 118/76 O2 Sat by Pulse 100 100 100 Oximetry 02/03/18 02/03/18 02/03/18 07:00 07:15 07:30 Temperature Pulse Rate 99 H 98 H 105 H Pulse Rate [ Apical] Pulse Rate [ From Monitor] Respiratory 20 16 16 Rate Blood Pressure 119/76 127/76 133/82 O2 Sat by Pulse 100 99 100 Oximetry 02/03/18 02/03/18 02/03/18 07:45 08:00 08:15 Temperature 98.8 F Pulse Rate 109 H 101 H 107 H Pulse Rate [ Apical] Pulse Rate [ 101 H From Monitor] Respiratory 15 18 19 Rate Blood Pressure 125/82 124/77 116/77 O2 Sat by Pulse 99 100 100 Oximetry 02/03/18 08:30 Temperature Pulse Rate 98 H Pulse Rate [ Apical] Pulse Rate [ From Monitor] Respiratory 18 Rate Blood Pressure 134/80 O2 Sat by Pulse 100 Oximetry Constitutional: no acute distress, alert, other (middle aged AAM normocephalic and atraumatic on MVS) Eyes: non-icteric ENT: oropharynx moist, other (ETT 23 cm TRANG) Neck: supple, no lymphadenopathy, no JVD, other ([place] in both nostrils) Effort: mildly labored Ascultation: Bilateral: diminished breath sounds, rhonchi (scant) Percussion: Bilateral: not dull Cardiovascular: regular rate and rhythm, other (No R/M) Gastrointestinal: normoactive bowel sounds, soft, non-tender, non-distended, other (No palpable HSM) Integumentary: other (poor turgor) Extremities: no cyanosis, no edema, pulses normal, no ischemia or petechiae Neurologic: normal mental status, non-focal exam (grossly), pupils equal and round, motor strength normal and Psychiatric: mood appropriate, affect normal CBC and BMP: 02/03/18 04:51 02/03/18 04:51 ABG, PT/INR, D-dimer: ABG POC ABG pH 7.501 (7.35-7.45) H 02/03/18 07:20 POC ABG pCO2 39.1 (35-45) 02/03/18 07:20 POC ABG pO2 90 (80-105) 02/03/18 07:20 POC ABG HCO3 30.6 02/03/18 07:20 POC ABG Total CO2 32 02/03/18 07:20 POC ABG O2 Sat 98 02/03/18 07:20 PT/INR, D-dimer PT 11.6 Sec. (12.2-14.9) L 02/01/18 04:17 INR 0.81 (0.87-1.13) L 02/01/18 04:17 Abnormal lab findings: Abnormal Labs 02/01/18 02/01/18 02/01/18 04:17 04:17 04:17 WBC RBC Hgb 15.3 H Hct MCV 100 H MCH 34 H MCHC Plt Count Lymph % (Auto) 45.8 H [place] % (Auto) 7.5 H Seg Neutrophils % Seg Neutrophils # PT 11.6 L INR 0.81 L POC ABG pH POC ABG pCO2 POC ABG pO2 Potassium BUN 7 L Creatinine 0.5 L Glucose 107 H Calcium AST 107 H Total Protein Albumin Plasma/Serum Alcohol Hepatitis C Antibody 02/01/18 02/01/18 02/01/18 04:56 07:18 13:04 WBC RBC 3.33 L Hgb 11.1 L Hct 33.2 L D 32.2 L MCV 100 H MCH 36 H MCHC 36 H Plt Count Lymph % (Auto) [place] % (Auto) Seg Neutrophils % Seg Neutrophils # PT INR POC ABG pH POC ABG pCO2 POC ABG pO2 Potassium BUN Creatinine Glucose Calcium AST Total Protein Albumin Plasma/Serum Alcohol 0.31 H Hepatitis C Antibody 02/01/18 02/01/18 02/01/18 14:08 14:41 17:22 WBC RBC Hgb 10.7 L Hct 31.2 L MCV MCH MCHC Plt Count Lymph % (Auto) [place] % (Auto) Seg Neutrophils % Seg Neutrophils # PT INR POC ABG pH 7.287 L 7.330 L POC ABG pCO2 50.0 H POC ABG pO2 54 L 114 H Potassium BUN Creatinine Glucose Calcium AST Total Protein Albumin Plasma/Serum Alcohol Hepatitis C Antibody 02/02/18 02/02/18 02/03/18 00:17 05:28 04:51 WBC RBC Hgb 9.8 L Hct 28.3 L MCV MCH MCHC Plt Count Lymph % (Auto) [place] % (Auto) Seg Neutrophils % Seg Neutrophils # PT INR POC ABG pH 7.510 H POC ABG pCO2 POC ABG pO2 129 H Potassium BUN Creatinine Glucose Calcium AST Total Protein Albumin Plasma/Serum Alcohol Hepatitis C Antibody Reactive A 02/03/18 02/03/18 02/03/18 04:51 04:51 07:20 WBC 12.9 H RBC 2.51 L Hgb 8.6 L Hct 25.0 L MCV 100 H MCH 34 H MCHC 35 H Plt Count 123 L Lymph % (Auto) 10.9 L [place] % (Auto) Seg Neutrophils % 82.3 H Seg Neutrophils # 10.6 H PT INR POC ABG pH 7.501 H POC ABG pCO2 POC ABG pO2 Potassium 3.0 L D BUN 6 L Creatinine 0.5 L Glucose 114 H Calcium 7.8 L D AST 42 H Total Protein 5.6 L D Albumin 2.6 L Plasma/Serum Alcohol Hepatitis C Antibody Chest x-ray: image reviewed (ETT in good position; RUL & LL infiltrates likely aspiration related) Allied health notes reviewed: nursing
[2018-02-03] MEDS: KCL 10MEQ/100ML 10 MEQ/100 ML BAG IV SCH ×3 (09:49→12:08)
[2018-02-03] MEDS: PROTONIX IV SCH (09:50)
--- NOTE | 2018-02-03 11:12 | Gastroenterology Progress Note ---
<RAEANNANGELANAHEED Arnold - Last Filed: 02/03/18 11:18> Assessment and Plan 1.Hematemesis -HGB 8.6 -continue to monitor H/H and transfuse as needed -hold blood thinning medications -s/p EGD with normal results, however blood actively running out of nose during procedure -etiology- most likely swallowed blood due to nose bleed -nasal packing in place, ENT consult pending - no active signs of bleeding overnight or this am per nursing -continue PPI and supportive care 2.ETOH abuse -monitor for DTs -alcohol abstinence discussed with family 3.elevated LFTs -LFTs stable -abd U/S showed gallstones with no evidence of cholecystitis or liver mass -hepatitis C antibody positive- will order VL and genotype -etiology- likey 2/2 ETOH abuse and HCV -further evaluation and treatment as outpatient -continue supportive care -no further GI recommendations at this time -will sign off, please call if needed Subjective Date of service: 02/03/18 Principal diagnosis: Acute GI Bleeding; EtOH Abuse; Hematemesis Interval history: Patient alert but remains intubated. Family at beside. No active signs of bleeding overnight or this am per nursing. Nasal packing still in place. Objective - Constitutional Vitals: Temp Pulse Resp BP Pulse Ox 98.8 F 112 H 19 117/72 97 02/03/18 08:00 02/03/18 10:30 02/03/18 10:30 02/03/18 10:30 02/03/18 10:30 General appearance: no acute distress - Respiratory Respiratory: bilateral: CTA - Cardiovascular Rhythm: other (tachycardia) - Gastrointestinal General gastrointestinal: Present: soft, non-distended, normal bowel sounds - Labs CBC & Chem 7: 02/03/18 04:51 02/03/18 04:51 Labs: Laboratory Results - last 24 hr 02/01/18 02/03/18 02/03/18 14:08 04:51 04:51 WBC 12.9 H RBC 2.51 L Hgb 8.6 L Hct 25.0 L MCV 100 H MCH 34 H MCHC 35 H RDW 13.3 Plt Count 123 L Lymph % (Auto) 10.9 L [place] % (Auto) 5.8 Eos % (Auto) 0.3 Baso % (Auto) 0.7 Lymph # 1.4 [place] # 0.7 Eos # 0.0 Baso # 0.1 Seg Neutrophils % 82.3 H Seg Neutrophils # 10.6 H POC ABG pH 7.287 L POC ABG pCO2 50.0 H POC ABG pO2 54 L POC ABG HCO3 23.9 POC ABG Total CO2 25 POC ABG O2 Sat 83 POC ABG Base Excess -3 FiO2 40 Sodium Potassium Chloride Carbon Dioxide Anion Gap BUN Creatinine Estimated GFR BUN/Creatinine Ratio Glucose Calcium Total Bilirubin AST ALT Alkaline Phosphatase Total Protein Albumin Albumin/Globulin Ratio Hepatitis A IgM Ab Non-reactive Hep Bs Antigen Non-reactive Hep B Core IgM Ab Non-reactive Hepatitis C Antibody Reactive A 02/03/18 02/03/18 04:51 07:20 WBC RBC Hgb Hct MCV MCH MCHC RDW Plt Count Lymph % (Auto) [place] % (Auto) Eos % (Auto) Baso % (Auto) Lymph # [place] # Eos # Baso # Seg Neutrophils % Seg Neutrophils # POC ABG pH 7.501 H POC ABG pCO2 39.1 POC ABG pO2 90 POC ABG HCO3 30.6 POC ABG Total CO2 32 POC ABG O2 Sat 98 POC ABG Base Excess 7 FiO2 35 Sodium 137 Potassium 3.0 L D Chloride 100.9 Carbon Dioxide 27 Anion Gap 12 BUN 6 L Creatinine 0.5 L Estimated GFR > 60 BUN/Creatinine Ratio 12 Glucose 114 H Calcium 7.8 L D Total Bilirubin 1.00 AST 42 H ALT 21 Alkaline Phosphatase 36 Total Protein 5.6 L D Albumin 2.6 L Albumin/Globulin Ratio 0.9 Hepatitis A IgM Ab Hep Bs Antigen Hep B Core IgM Ab Hepatitis C Antibody <HOA FRIEDMAN - Last Filed: 02/03/18 13:31> Assessment and Plan pt seen and examined. agree with note above. no signs of gi bleeding. will need f/u in GI clinic after discharge for liver disease from hep c/alcohol management. will s/o, please call as needed. Objective - Constitutional Vitals: Temp Pulse Resp BP Pulse Ox 99.2 F 110 H 19 130/81 99 02/03/18 12:00 02/03/18 11:06 02/03/18 10:30 02/03/18 11:06 02/03/18 11:06 - Labs CBC & Chem 7: 02/03/18 04:51 02/03/18 04:51 Labs: Laboratory Results - last 24 hr 02/01/18 02/03/18 02/03/18 14:08 04:51 04:51 WBC 12.9 H RBC 2.51 L Hgb 8.6 L Hct 25.0 L MCV 100 H MCH 34 H MCHC 35 H RDW 13.3 Plt Count 123 L Lymph % (Auto) 10.9 L [place] % (Auto) 5.8 Eos % (Auto) 0.3 Baso % (Auto) 0.7 Lymph # 1.4 [place] # 0.7 Eos # 0.0 Baso # 0.1 Seg Neutrophils % 82.3 H Seg Neutrophils # 10.6 H POC ABG pH 7.287 L POC ABG pCO2 50.0 H POC ABG pO2 54 L POC ABG HCO3 23.9 POC ABG Total CO2 25 POC ABG O2 Sat 83 POC ABG Base Excess -3 FiO2 40 Sodium Potassium Chloride Carbon Dioxide Anion Gap BUN Creatinine Estimated GFR BUN/Creatinine Ratio Glucose Calcium Total Bilirubin AST ALT Alkaline Phosphatase Total Protein Albumin Albumin/Globulin Ratio Hepatitis A IgM Ab Non-reactive Hep Bs Antigen Non-reactive Hep B Core IgM Ab Non-reactive Hepatitis C Antibody Reactive A 02/03/18 02/03/18 04:51 07:20 WBC RBC Hgb Hct MCV MCH MCHC RDW Plt Count Lymph % (Auto) [place] % (Auto) Eos % (Auto) Baso % (Auto) Lymph # [place] # Eos # Baso # Seg Neutrophils % Seg Neutrophils # POC ABG pH 7.501 H POC ABG pCO2 39.1 POC ABG pO2 90 POC ABG HCO3 30.6 POC ABG Total CO2 32 POC ABG O2 Sat 98 POC ABG Base Excess 7 FiO2 35 Sodium 137 Potassium 3.0 L D Chloride 100.9 Carbon Dioxide 27 Anion Gap 12 BUN 6 L Creatinine 0.5 L Estimated GFR > 60 BUN/Creatinine Ratio 12 Glucose 114 H Calcium 7.8 L D Total Bilirubin 1.00 AST 42 H ALT 21 Alkaline Phosphatase 36 Total Protein 5.6 L D Albumin 2.6 L Albumin/Globulin Ratio 0.9 Hepatitis A IgM Ab Hep Bs Antigen Hep B Core IgM Ab Hepatitis C Antibody
--- NOTE | 2018-02-03 14:32 | XRay Report ---
AP ABDOMEN: HISTORY: Nasogastric tube placement. The nasogastric tube terminates in the fundus of the stomach. The abdominal gas pattern is unremarkable. No masses or organomegaly is identified and there is no gross evidence of free air or fluid. No significant soft tissue calcifications are noted. IMPRESSION: Unremarkable abdomen. A nasogastric tube terminates in the fundus of the stomach.
[2018-02-03] MEDS: THERAGRAN Tab PO SCH (17:43)
[2018-02-03] MEDS: VITAMIN B-1 PO SCH (17:43)
--- NOTE | 2018-02-03 19:34 | Progress Note ---
Hospitalist Physical - Constitutional Vitals: Temp Pulse Resp BP Pulse Ox 98.9 F 139 H 22 150/75 100 02/03/18 16:00 02/03/18 18:15 02/03/18 18:00 02/03/18 18:15 02/03/18 18:15 General appearance: Present: no acute distress Results - Labs CBC & Chem 7: 02/03/18 04:51 02/03/18 04:51 Labs: Laboratory Last Values WBC 12.9 K/mm3 (4.5-11.0) H 02/03/18 04:51 RBC 2.51 M/mm3 (3.65-5.03) L 02/03/18 04:51 Hgb 8.6 gm/dl (11.8-15.2) L 02/03/18 04:51 Hct 25.0 % (35.5-45.6) L 02/03/18 04:51 MCV 100 fl (84-94) H 02/03/18 04:51 MCH 34 pg (28-32) H 02/03/18 04:51 MCHC 35 % (32-34) H 02/03/18 04:51 RDW 13.3 % (13.2-15.2) 02/03/18 04:51 Plt Count 123 K/mm3 (140-440) L 02/03/18 04:51 Lymph % (Auto) 10.9 % (13.4-35.0) L 02/03/18 04:51 [place] % (Auto) 5.8 % (0.0-7.3) 02/03/18 04:51 Eos % (Auto) 0.3 % (0.0-4.3) 02/03/18 04:51 Baso % (Auto) 0.7 % (0.0-1.8) 02/03/18 04:51 Lymph # 1.4 K/mm3 (1.2-5.4) 02/03/18 04:51 [place] # 0.7 K/mm3 (0.0-0.8) 02/03/18 04:51 Eos # 0.0 K/mm3 (0.0-0.4) 02/03/18 04:51 Baso # 0.1 K/mm3 (0.0-0.1) 02/03/18 04:51 Seg Neutrophils % 82.3 % (40.0-70.0) H 02/03/18 04:51 Seg Neutrophils # 10.6 K/mm3 (1.8-7.7) H 02/03/18 04:51 PT 11.6 Sec. (12.2-14.9) L 02/01/18 04:17 INR 0.81 (0.87-1.13) L 02/01/18 04:17 APTT 24.7 Sec. (24.2-36.6) 02/01/18 04:17 POC ABG pH 7.501 (7.35-7.45) H 02/03/18 07:20 POC ABG pCO2 39.1 (35-45) 02/03/18 07:20 POC ABG pO2 90 (80-105) 02/03/18 07:20 POC ABG HCO3 30.6 02/03/18 07:20 POC ABG Total CO2 32 02/03/18 07:20 POC ABG O2 Sat 98 02/03/18 07:20 POC ABG Base Excess 7 02/03/18 07:20 FiO2 35 % 02/03/18 07:20 Sodium 137 mmol/L (137-145) 02/03/18 04:51 Potassium 3.0 mmol/L (3.6-5.0) L D 02/03/18 04:51 Chloride 100.9 mmol/L (98-107) 02/03/18 04:51 Carbon Dioxide 27 mmol/L (22-30) 02/03/18 04:51 Anion Gap 12 mmol/L 02/03/18 04:51 BUN 6 mg/dL (9-20) L 02/03/18 04:51 Creatinine 0.5 mg/dL (0.8-1.5) L 02/03/18 04:51 Estimated GFR > 60 ml/min 02/03/18 04:51 BUN/Creatinine Ratio 12 % 02/03/18 04:51 Glucose 114 mg/dL (75-100) H 02/03/18 04:51 Calcium 7.8 mg/dL (8.4-10.2) L D 02/03/18 04:51 Total Bilirubin 1.00 mg/dL (0.1-1.2) 02/03/18 04:51 AST 42 units/L (5-40) H 02/03/18 04:51 ALT 21 units/L (7-56) 02/03/18 04:51 Alkaline Phosphatase 36 units/L (35-129) 02/03/18 04:51 Total Protein 5.6 g/dL (6.3-8.2) L D 02/03/18 04:51 Albumin 2.6 g/dL (3.9-5) L 02/03/18 04:51 Albumin/Globulin Ratio 0.9 % 02/03/18 04:51 Lipase 49 units/L (13-60) 02/01/18 04:17 Plasma/Serum Alcohol 0.31 % (0-0.07) H 02/01/18 04:56 Hepatitis A IgM Ab Non-reactive (NonReactive) 02/03/18 04:51 Hep Bs Antigen Non-reactive (Negative) 02/03/18 04:51 Hep B Core IgM Ab Non-reactive (NonReactive) 02/03/18 04:51 Hepatitis C Antibody Reactive (NonReactive) A 02/03/18 04:51 Blood Type O POSITIVE 02/01/18 04:17 Antibody Screen Negative 02/01/18 04:17
[2018-02-04] MEDS: DIPRIVAN 10 MG/ML 1,000 MG/100 ML BOTTLE IV SCH ×5 (00:24→20:10)
--- NOTE | 2018-02-04 02:53 | XRay Report ---
FINAL REPORT EXAM: XR CHEST 1V AP HISTORY: follow up respiratory failure TECHNIQUE: AP portable view of the chest. PRIORS: 02/02/2018 FINDINGS: There is an endotracheal tube in place which appears adequately positioned in the mid trachea. There is an NG tube in place with the tip in the stomach. The side port is above the GE junction. The cardiomediastinal silhouette appears normal. The right upper lobe airspace infiltrate is without change. The left lung is bases better aerated. The bones and soft tissues are unremarkable. IMPRESSION: Stable right upper lobe airspace infiltrate. The left lung base is better aerated. NG tube side port is above the GE junction. Consider advancement of about 10 cm.
[2018-02-04] MEDS: THERAGRAN Tab PO SCH (11:23)
[2018-02-04] MEDS: VITAMIN B-1 PO SCH (11:24)
[2018-02-04] MEDS: ATIVAN IV PRN (11:24)
[2018-02-04] MEDS: PROTONIX FEEDTUBE SCH (11:24)
[2018-02-04] MEDS: D5/0.45NS 1,000 ML IV SCH (11:25)
--- NOTE | 2018-02-04 12:58 | Progress Note ---
Hospitalist Physical - Constitutional Vitals: Temp Pulse Resp BP Pulse Ox 99.5 F 107 H 21 126/72 99 02/04/18 04:00 02/04/18 10:16 02/04/18 09:15 02/04/18 10:16 02/04/18 10:16 General appearance: Present: no acute distress Results - Labs CBC & Chem 7: 02/03/18 04:51 02/03/18 04:51 Labs: Laboratory Last Values WBC 12.9 K/mm3 (4.5-11.0) H 02/03/18 04:51 RBC 2.51 M/mm3 (3.65-5.03) L 02/03/18 04:51 Hgb 8.6 gm/dl (11.8-15.2) L 02/03/18 04:51 Hct 25.0 % (35.5-45.6) L 02/03/18 04:51 MCV 100 fl (84-94) H 02/03/18 04:51 MCH 34 pg (28-32) H 02/03/18 04:51 MCHC 35 % (32-34) H 02/03/18 04:51 RDW 13.3 % (13.2-15.2) 02/03/18 04:51 Plt Count 123 K/mm3 (140-440) L 02/03/18 04:51 Lymph % (Auto) 10.9 % (13.4-35.0) L 02/03/18 04:51 [place] % (Auto) 5.8 % (0.0-7.3) 02/03/18 04:51 Eos % (Auto) 0.3 % (0.0-4.3) 02/03/18 04:51 Baso % (Auto) 0.7 % (0.0-1.8) 02/03/18 04:51 Lymph # 1.4 K/mm3 (1.2-5.4) 02/03/18 04:51 [place] # 0.7 K/mm3 (0.0-0.8) 02/03/18 04:51 Eos # 0.0 K/mm3 (0.0-0.4) 02/03/18 04:51 Baso # 0.1 K/mm3 (0.0-0.1) 02/03/18 04:51 Seg Neutrophils % 82.3 % (40.0-70.0) H 02/03/18 04:51 Seg Neutrophils # 10.6 K/mm3 (1.8-7.7) H 02/03/18 04:51 PT 11.6 Sec. (12.2-14.9) L 02/01/18 04:17 INR 0.81 (0.87-1.13) L 02/01/18 04:17 APTT 24.7 Sec. (24.2-36.6) 02/01/18 04:17 POC ABG pH 7.470 (7.35-7.45) H 02/04/18 11:43 POC ABG pCO2 44.0 (35-45) 02/04/18 11:43 POC ABG pO2 106 (80-105) H 02/04/18 11:43 POC ABG HCO3 32.0 02/04/18 11:43 POC ABG Total CO2 33 02/04/18 11:43 POC ABG O2 Sat 98 02/04/18 11:43 POC ABG Base Excess 8 02/04/18 11:43 FiO2 30 % 02/04/18 11:43 Sodium 137 mmol/L (137-145) 02/03/18 04:51 Potassium 3.0 mmol/L (3.6-5.0) L D 02/03/18 04:51 Chloride 100.9 mmol/L (98-107) 02/03/18 04:51 Carbon Dioxide 27 mmol/L (22-30) 02/03/18 04:51 Anion Gap 12 mmol/L 02/03/18 04:51 BUN 6 mg/dL (9-20) L 02/03/18 04:51 Creatinine 0.5 mg/dL (0.8-1.5) L 02/03/18 04:51 Estimated GFR > 60 ml/min 02/03/18 04:51 BUN/Creatinine Ratio 12 % 02/03/18 04:51 Glucose 114 mg/dL (75-100) H 02/03/18 04:51 Calcium 7.8 mg/dL (8.4-10.2) L D 02/03/18 04:51 Total Bilirubin 1.00 mg/dL (0.1-1.2) 02/03/18 04:51 AST 42 units/L (5-40) H 02/03/18 04:51 ALT 21 units/L (7-56) 02/03/18 04:51 Alkaline Phosphatase 36 units/L (35-129) 02/03/18 04:51 Total Protein 5.6 g/dL (6.3-8.2) L D 02/03/18 04:51 Albumin 2.6 g/dL (3.9-5) L 02/03/18 04:51 Albumin/Globulin Ratio 0.9 % 02/03/18 04:51 Lipase 49 units/L (13-60) 02/01/18 04:17 Plasma/Serum Alcohol 0.31 % (0-0.07) H 02/01/18 04:56 Hepatitis A IgM Ab Non-reactive (NonReactive) 02/03/18 04:51 Hep Bs Antigen Non-reactive (Negative) 02/03/18 04:51 Hep B Core IgM Ab Non-reactive (NonReactive) 02/03/18 04:51 Hepatitis C Antibody Reactive (NonReactive) A 02/03/18 04:51 Blood Type O POSITIVE 02/01/18 04:17 Antibody Screen Negative 02/01/18 04:17
[2018-02-04 14:56] LABS: Basophils % (Auto) 0.3 % (0.0-1.8); Eosinophils # (Auto) 0.1 K/mm3 (0.0-0.4); Eosinophils % (Auto) 0.6 % (0.0-4.3); Hematocrit 25.8 % (35.5-45.6); Hemoglobin 8.9 gm/dl (11.8-15.2); Lymphocytes # (Auto) 1.1 K/mm3 (1.2-5.4); Lymphocytes % (Auto) 7.5 % (13.4-35.0); Mean Corpuscular HGB Conc 34 % (32-34); Mean Corpuscular Hemoglobin 35 pg (28-32); Mean Corpuscular Volume 101 fl (84-94); Monocytes # (Auto) 1.4 K/mm3 (0.0-0.8); Monocytes % (Auto) 9.3 % (0.0-7.3); Platelet Count 148 K/mm3 (140-440); Red Blood Count 2.56 M/mm3 (3.65-5.03); Red Cell Distribution Width 13.1 % (13.2-15.2)
[2018-02-04 15:09] LABS: BUN/Creatinine Ratio 13; Blood Urea Nitrogen 5 mg/dL (9-20); Calcium 8.1 mg/dL (8.4-10.2); Hemolysis Index 5
--- NOTE | 2018-02-04 15:47 | Progress Note ---
Assessment and Plan Acute Hypoxemic Respiratory Failure on MVS Massive Epistaxis (Post Traumatic) Possible G.I. Bleed H/O EtOH Abuse Anemia (Macrocytic) Hypokalemia - Nose packings pulled after mosturizing at bedside; no active bleeding but left nostril still very raw and may rebleed - left Rhino's in room in case of re-bleed - ENT consult placed for definitive therapy - reduced set rate to 12/min and reduced TV to 450 mls yesterday - begin daily SBT's today - ABG after 2 hours on PSV - continue daily SAT's - continue enteral nutrition as tolerated - stopped IVF - get Mag and Phos levels and address - begin daily MVI - nutrition consult placed - VAP bundle addressed - continue GI prophylaxis - EGD reviewed ; no active bleeding (manage per GI recs otherwise) - continue other care per attending / other consultants - watch closely for DT's .... re-evaluate in am & prn The high probability of a clinically significant, sudden or life-threatening deterioration of the respiratory, hematologic system(s) required my full and direct attention, intervention and personal management. The aggregate critical care time was [30] minutes without overlap. Time includes spent on; [x] Data Review and interpretation [x] Patient assessment and monitoring of vital signs [x] Documentation [x] Medication orders and management Subjective Date of service: 02/04/18 Principal diagnosis: Acute GI Bleeding; EtOH Abuse; Hematemesis Interval history: Patient is seen today for: Acute GI Bleeding; EtOH Abuse; Hematemesis; Massive Epistaxis Seen and examined at bedside; 24hour events reviewed; nursing and respiratory care staff consulted; no adverse overnight events reported to me; resting in bed ; remains on MVS; nose packings in place; no active bleeding; responding appropriately; no seizures; no vert DT's Objective Vital Signs - 12hr 02/04/18 02/04/18 02/04/18 03:45 04:00 04:15 Temperature 99.5 F Pulse Rate 99 H 104 H 113 H Pulse Rate [ 109 H From Monitor] Respiratory 18 Rate Blood Pressure 107/64 115/70 114/75 O2 Sat by Pulse 100 100 100 Oximetry 02/04/18 02/04/18 02/04/18 04:30 04:45 05:00 Temperature Pulse Rate 113 H 116 H 112 H Pulse Rate [ From Monitor] Respiratory Rate Blood Pressure 139/87 132/87 140/92 O2 Sat by Pulse 99 100 99 Oximetry 02/04/18 02/04/18 02/04/18 05:15 05:30 05:33 Temperature Pulse Rate 113 H 110 H 106 H Pulse Rate [ From Monitor] Respiratory Rate Blood Pressure 133/82 138/77 138/77 O2 Sat by Pulse 99 99 99 Oximetry 02/04/18 02/04/18 02/04/18 05:45 06:00 06:15 Temperature Pulse Rate 107 H 106 H 116 H Pulse Rate [ From Monitor] Respiratory Rate Blood Pressure 141/84 144/90 141/84 O2 Sat by Pulse 98 97 96 Oximetry 02/04/18 02/04/18 02/04/18 06:30 06:45 07:00 Temperature Pulse Rate 112 H 105 H 111 H Pulse Rate [ From Monitor] Respiratory Rate Blood Pressure 128/74 106/76 106/76 O2 Sat by Pulse 97 100 98 Oximetry 02/04/18 02/04/18 02/04/18 07:15 07:30 07:46 Temperature Pulse Rate 108 H 107 H 105 H Pulse Rate [ From Monitor] Respiratory Rate Blood Pressure 98/60 108/75 83/56 O2 Sat by Pulse 98 97 99 Oximetry 02/04/18 02/04/18 02/04/18 08:00 08:15 08:30 Temperature Pulse Rate 105 H 102 H 91 H Pulse Rate [ From Monitor] Respiratory Rate Blood Pressure 117/69 113/66 116/70 O2 Sat by Pulse 98 98 99 Oximetry 02/04/18 02/04/18 02/04/18 08:45 08:57 09:00 Temperature Pulse Rate 93 H 103 H 100 H Pulse Rate [ From Monitor] Respiratory Rate Blood Pressure 102/65 123/67 102/65 O2 Sat by Pulse 99 100 99 Oximetry 02/04/18 02/04/18 02/04/18 09:15 09:30 09:45 Temperature Pulse Rate 106 H 106 H 107 H Pulse Rate [ From Monitor] Respiratory 21 Rate Blood Pressure 128/77 116/71 111/74 O2 Sat by Pulse 99 99 99 Oximetry 02/04/18 02/04/18 02/04/18 10:00 10:16 10:30 Temperature Pulse Rate 101 H 107 H 102 H Pulse Rate [ From Monitor] Respiratory Rate Blood Pressure 126/72 126/72 128/77 O2 Sat by Pulse 99 99 Oximetry 02/04/18 02/04/18 02/04/18 10:45 11:00 11:15 Temperature Pulse Rate 102 H 101 H 100 H Pulse Rate [ From Monitor] Respiratory 31 H 33 H Rate Blood Pressure 128/83 128/83 131/75 O2 Sat by Pulse 100 97 98 Oximetry 02/04/18 02/04/18 02/04/18 11:30 11:45 12:00 Temperature Pulse Rate 91 H 93 H 98 H Pulse Rate [ From Monitor] Respiratory 25 H 25 H 14 Rate Blood Pressure 134/82 120/73 116/86 O2 Sat by Pulse 99 99 100 Oximetry 02/04/18 02/04/18 02/04/18 12:15 12:30 12:45 Temperature Pulse Rate 97 H 98 H 106 H Pulse Rate [ From Monitor] Respiratory 28 H 29 H 27 H Rate Blood Pressure 141/82 143/82 132/75 O2 Sat by Pulse 95 98 100 Oximetry 02/04/18 02/04/18 13:00 13:25 Temperature Pulse Rate 109 H 111 H Pulse Rate [ From Monitor] Respiratory 34 H 33 H Rate Blood Pressure 134/68 132/75 O2 Sat by Pulse 98 98 Oximetry Constitutional: no acute distress, alert, other (middle aged AAM normocephalic and atraumatic on MVS) Eyes: non-icteric ENT: oropharynx moist, other (ETT 23 cm TRANG) Neck: supple, no lymphadenopathy, no JVD, other (Rhinos in both nostrils) Effort: mildly labored Ascultation: Bilateral: diminished breath sounds, rhonchi (scant) Percussion: Bilateral: not dull Cardiovascular: regular rate and rhythm, other (No R/M) Gastrointestinal: normoactive bowel sounds, soft, non-tender, non-distended, other (No palpable HSM) Integumentary: other (poor turgor) Extremities: no cyanosis, no edema, pulses normal, no ischemia or petechiae Neurologic: normal mental status, non-focal exam (grossly), pupils equal and round, motor strength normal and Psychiatric: mood appropriate, affect normal CBC and BMP: 02/04/18 14:30 02/04/18 14:30 ABG, PT/INR, D-dimer: ABG POC ABG pH 7.470 (7.35-7.45) H 02/04/18 11:43 POC ABG pCO2 44.0 (35-45) 02/04/18 11:43 POC ABG pO2 106 (80-105) H 02/04/18 11:43 POC ABG HCO3 32.0 02/04/18 11:43 POC ABG Total CO2 33 02/04/18 11:43 POC ABG O2 Sat 98 02/04/18 11:43 PT/INR, D-dimer PT 11.6 Sec. (12.2-14.9) L 02/01/18 04:17 INR 0.81 (0.87-1.13) L 02/01/18 04:17 Abnormal lab findings: Abnormal Labs 02/01/18 02/01/18 02/01/18 04:17 04:17 04:17 WBC RBC Hgb 15.3 H Hct MCV 100 H MCH 34 H MCHC RDW Plt Count Lymph % (Auto) 45.8 H [place] % (Auto) 7.5 H Lymph # [place] # Seg Neutrophils % Seg Neutrophils # PT 11.6 L INR 0.81 L POC ABG pH POC ABG pCO2 POC ABG pO2 Potassium BUN 7 L Creatinine 0.5 L Glucose 107 H Calcium Phosphorus Magnesium AST 107 H Total Protein Albumin Plasma/Serum Alcohol Hepatitis C Antibody 02/01/18 02/01/18 02/01/18 04:56 07:18 13:04 WBC RBC 3.33 L Hgb 11.1 L Hct 33.2 L D 32.2 L MCV 100 H MCH 36 H MCHC 36 H RDW Plt Count Lymph % (Auto) [place] % (Auto) Lymph # [place] # Seg Neutrophils % Seg Neutrophils # PT INR POC ABG pH POC ABG pCO2 POC ABG pO2 Potassium BUN Creatinine Glucose Calcium Phosphorus Magnesium AST Total Protein Albumin Plasma/Serum Alcohol 0.31 H Hepatitis C Antibody 02/01/18 02/01/18 02/01/18 14:08 14:41 17:22 WBC RBC Hgb 10.7 L Hct 31.2 L MCV MCH MCHC RDW Plt Count Lymph % (Auto) [place] % (Auto) Lymph # [place] # Seg Neutrophils % Seg Neutrophils # PT INR POC ABG pH 7.287 L 7.330 L POC ABG pCO2 50.0 H POC ABG pO2 54 L 114 H Potassium BUN Creatinine Glucose Calcium Phosphorus Magnesium AST Total Protein Albumin Plasma/Serum Alcohol Hepatitis C Antibody 02/02/18 02/02/18 02/03/18 00:17 05:28 04:51 WBC RBC Hgb 9.8 L Hct 28.3 L MCV MCH MCHC RDW Plt Count Lymph % (Auto) [place] % (Auto) Lymph # [place] # Seg Neutrophils % Seg Neutrophils # PT INR POC ABG pH 7.510 H POC ABG pCO2 POC ABG pO2 129 H Potassium BUN Creatinine Glucose Calcium Phosphorus Magnesium AST Total Protein Albumin Plasma/Serum Alcohol Hepatitis C Antibody Reactive A 02/03/18 02/03/18 02/03/18 04:51 04:51 07:20 WBC 12.9 H RBC 2.51 L Hgb 8.6 L Hct 25.0 L MCV 100 H MCH 34 H MCHC 35 H RDW Plt Count 123 L Lymph % (Auto) 10.9 L [place] % (Auto) Lymph # [place] # Seg Neutrophils % 82.3 H Seg Neutrophils # 10.6 H PT INR POC ABG pH 7.501 H POC ABG pCO2 POC ABG pO2 Potassium 3.0 L D BUN 6 L Creatinine 0.5 L Glucose 114 H Calcium 7.8 L D Phosphorus Magnesium AST 42 H Total Protein 5.6 L D Albumin 2.6 L Plasma/Serum Alcohol Hepatitis C Antibody 02/04/18 02/04/18 02/04/18 05:34 11:43 14:30 WBC RBC Hgb Hct MCV MCH MCHC RDW Plt Count Lymph % (Auto) [place] % (Auto) Lymph # [place] # Seg Neutrophils % Seg Neutrophils # PT INR POC ABG pH 7.533 H 7.470 H POC ABG pCO2 32.4 L POC ABG pO2 106 H Potassium 3.0 L BUN 5 L Creatinine 0.4 L Glucose 130 H Calcium 8.1 L Phosphorus 2.20 L Magnesium 1.60 L AST Total Protein Albumin Plasma/Serum Alcohol Hepatitis C Antibody 02/04/18 14:30 WBC 14.8 H RBC 2.56 L Hgb 8.9 L Hct 25.8 L MCV 101 H MCH 35 H MCHC RDW 13.1 L Plt Count Lymph % (Auto) 7.5 L [place] % (Auto) 9.3 H Lymph # 1.1 L [place] # 1.4 H Seg Neutrophils % 82.3 H Seg Neutrophils # 12.2 H PT INR POC ABG pH POC ABG pCO2 POC ABG pO2 Potassium BUN Creatinine Glucose Calcium Phosphorus Magnesium AST Total Protein Albumin Plasma/Serum Alcohol Hepatitis C Antibody Allied health notes reviewed: nursing
[2018-02-04] MEDS: PROTONIX IV SCH (16:45)
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
[2018-02-04] MEDS: AUGMENTIN ORAL LIQD PO SCH (22:00)
[2018-02-04] MEDS: ZINC OXIDE TP SCH (22:31)
[2018-02-05] MEDS: D5/0.45NS 1,000 ML IV SCH (00:13)
--- NOTE | 2018-02-05 05:02 | XRay Report ---
FINAL REPORT PROCEDURE: XR CHEST 1V AP TECHNIQUE: Chest radiograph anteroposterior view. CPT 60004 HISTORY: follow up respiratory failure COMPARISON: 02/04/2018 FINDINGS: Heart: Normal. Mediastinum/Vessels: Normal. Lungs/Pleural space: Lungs are expanded. There are patchy bilateral pulmonary infiltrates greater at the left lung base. There are no effusions or pneumothoraces.. Bony thorax: No acute osseous abnormality. Life support devices: Endotracheal tube is in the mid trachea. NG tube is in the stomach.. IMPRESSION: Heart size is normal. There are bilateral infiltrates. ET tube and NG tube are in proper position..
[2018-02-05 05:04] LABS: Basophils % (Auto) 0.2 % (0.0-1.8); Eosinophils # (Auto) 0.1 K/mm3 (0.0-0.4); Eosinophils % (Auto) 0.9 % (0.0-4.3); Hematocrit 23.1 % (35.5-45.6); Lymphocytes # (Auto) 1.3 K/mm3 (1.2-5.4); Lymphocytes % (Auto) 10.3 % (13.4-35.0); Mean Corpuscular HGB Conc 35 % (32-34); Mean Corpuscular Hemoglobin 35 pg (28-32); Mean Corpuscular Volume 100 fl (84-94); Monocytes # (Auto) 1.4 K/mm3 (0.0-0.8); Monocytes % (Auto) 10.9 % (0.0-7.3); Platelet Count 172 K/mm3 (140-440); Red Blood Count 2.31 M/mm3 (3.65-5.03)
[2018-02-05] MEDS: DIPRIVAN 10 MG/ML 1,000 MG/100 ML BOTTLE IV SCH ×2 (05:56→10:52)
[2018-02-05 07:49] LABS: BUN/Creatinine Ratio 15; Blood Urea Nitrogen 6 mg/dL (9-20); Calcium 7.8 mg/dL (8.4-10.2); Hemolysis Index 0
[2018-02-05 08:59] LABS: BUN/Creatinine Ratio 15; Blood Urea Nitrogen 6 mg/dL (9-20); Calcium 7.9 mg/dL (8.4-10.2); Hemolysis Index 3
[2018-02-05] MEDS: AUGMENTIN ORAL LIQD PO SCH ×2 (09:27→21:49)
[2018-02-05] MEDS: VITAMIN B-1 PO SCH (09:27)
[2018-02-05] MEDS: PROTONIX FEEDTUBE SCH (09:27)
[2018-02-05] MEDS: THERAGRAN Tab PO SCH (09:27)
[2018-02-05] MEDS: KCL 10MEQ/100ML 10 MEQ/100 ML BAG IV SCH ×4 (10:40→15:00)
--- NOTE | 2018-02-05 10:44 | Progress Note ---
Assessment and Plan - Patient Problems (1) Epistaxis Current Visit: Yes Status: Acute Plan to address problem: No active bleeding at this time, saline nasal spray Zinc oxide will start augmentin (2) Respiratory failure Current Visit: Yes Status: Acute Plan to address problem: ween as tolerated (3) Ventilator dependent Current Visit: Yes Status: Acute Plan to address problem: titrate O2 to keep sat >=92% consider trache Subjective Principal diagnosis: Acute GI Bleeding; EtOH Abuse; Hematemesis Interval history: Pt. resting comfortably. No further bleeding/epistaxis Objective - Constitutional Vitals: Vital Signs - 12hr 02/04/18 02/04/18 02/04/18 22:46 23:00 23:16 Temperature Pulse Rate 113 H 113 H 103 H Pulse Rate [ Apical] Pulse Rate [ From Monitor] Respiratory 17 29 H 27 H Rate Blood Pressure 126/83 123/60 126/83 O2 Sat by Pulse 100 97 99 Oximetry 02/04/18 02/04/18 02/04/18 23:30 23:36 23:37 Temperature Pulse Rate 100 H 101 H 100 H Pulse Rate [ Apical] Pulse Rate [ From Monitor] Respiratory 24 23 Rate Blood Pressure 102/65 102/65 102/65 O2 Sat by Pulse 97 97 97 Oximetry 02/04/18 02/04/18 02/05/18 23:46 23:53 00:00 Temperature 98.4 F Pulse Rate 101 H 99 H Pulse Rate [ 92 H Apical] Pulse Rate [ 92 H From Monitor] Respiratory 23 22 Rate Blood Pressure 102/65 106/61 O2 Sat by Pulse 97 99 Oximetry 02/05/18 02/05/18 02/05/18 00:06 00:16 00:30 Temperature Pulse Rate 97 H 93 H 95 H Pulse Rate [ Apical] Pulse Rate [ From Monitor] Respiratory 22 22 25 H Rate Blood Pressure 106/61 102/65 125/78 O2 Sat by Pulse 98 98 100 Oximetry 02/05/18 02/05/18 02/05/18 00:46 01:00 01:16 Temperature Pulse Rate 104 H 105 H 96 H Pulse Rate [ Apical] Pulse Rate [ From Monitor] Respiratory 28 H 29 H 21 Rate Blood Pressure 125/78 129/73 125/78 O2 Sat by Pulse 98 97 97 Oximetry 02/05/18 02/05/18 02/05/18 01:30 01:46 02:00 Temperature Pulse Rate 92 H 94 H 95 H Pulse Rate [ Apical] Pulse Rate [ From Monitor] Respiratory 23 22 22 Rate Blood Pressure 104/61 129/73 111/68 O2 Sat by Pulse 98 97 97 Oximetry 02/05/18 02/05/18 02/05/18 02:16 02:30 02:46 Temperature 98.7 F Pulse Rate 96 H 94 H 99 H Pulse Rate [ Apical] Pulse Rate [ From Monitor] Respiratory 21 22 25 H Rate Blood Pressure 111/68 106/67 106/67 O2 Sat by Pulse 97 98 99 Oximetry 02/05/18 02/05/18 02/05/18 03:00 03:16 03:30 Temperature Pulse Rate 100 H 104 H 88 Pulse Rate [ Apical] Pulse Rate [ From Monitor] Respiratory 25 H 27 H 22 Rate Blood Pressure 106/67 112/70 126/74 O2 Sat by Pulse 98 99 99 Oximetry 02/05/18 02/05/18 02/05/18 03:46 04:00 04:01 Temperature Pulse Rate 88 100 H 98 H Pulse Rate [ Apical] Pulse Rate [ 108 H From Monitor] Respiratory 22 28 H Rate Blood Pressure 126/74 123/78 123/78 O2 Sat by Pulse 98 100 100 Oximetry 02/05/18 02/05/18 02/05/18 04:16 04:30 04:46 Temperature Pulse Rate 99 H 97 H 94 H Pulse Rate [ Apical] Pulse Rate [ From Monitor] Respiratory 27 H 29 H 24 Rate Blood Pressure 123/78 110/68 110/68 O2 Sat by Pulse 100 100 97 Oximetry 02/05/18 02/05/18 02/05/18 05:00 05:16 05:30 Temperature Pulse Rate 92 H 93 H 90 Pulse Rate [ Apical] Pulse Rate [ From Monitor] Respiratory 23 23 23 Rate Blood Pressure 100/58 100/58 103/63 O2 Sat by Pulse 99 97 99 Oximetry 02/05/18 02/05/18 02/05/18 05:46 06:00 06:30 Temperature Pulse Rate 106 H 102 H 99 H Pulse Rate [ Apical] Pulse Rate [ From Monitor] Respiratory 16 28 H 27 H Rate Blood Pressure 103/63 110/74 110/74 O2 Sat by Pulse 99 99 96 Oximetry 02/05/18 02/05/18 02/05/18 07:00 07:30 07:53 Temperature 98.6 F Pulse Rate 106 H 92 H Pulse Rate [ Apical] Pulse Rate [ From Monitor] Respiratory 22 24 Rate Blood Pressure 100/71 103/62 O2 Sat by Pulse 98 99 Oximetry 02/05/18 02/05/18 02/05/18 08:00 08:26 08:30 Temperature Pulse Rate 96 H 89 94 H Pulse Rate [ Apical] Pulse Rate [ 90 From Monitor] Respiratory 27 H 27 H Rate Blood Pressure 121/69 121/69 114/63 O2 Sat by Pulse 98 99 99 Oximetry 02/05/18 02/05/18 02/05/18 09:00 09:30 10:00 Temperature Pulse Rate 116 H 110 H 114 H Pulse Rate [ Apical] Pulse Rate [ From Monitor] Respiratory 18 17 34 H Rate Blood Pressure 114/63 147/71 134/75 O2 Sat by Pulse 96 83 L Oximetry General appearance: Present: no acute distress - EENT Eyes: PERRL, EOM intact ENT: other (no nasal bleeding, ET in place) Ears: bilateral: other (pinna w/o breakdown) - Neck Neck: supple - Respiratory Respiratory effort: normal, other (on vent) Respiratory: bilateral: CTA - Breasts Breasts: deferred - Cardiovascular Rhythm: regular Heart Sounds: Present: S1 & S2 Extremities: no ischemia, pulses intact - Gastrointestinal General gastrointestinal: Present: soft, non-tender Rectal Exam: deferred - Genitourinary Male genitourinary: deferred - Integumentary Integumentary: clear, warm - Musculoskeletal Musculoskeletal: other (sedated & restrained) - Neurologic Neurologic: other (sedated) - Psychiatric Psychiatric: other (sedated) - Labs CBC & Chem 7: 02/05/18 04:32 02/05/18 08:14 Labs: Abnormal lab results 02/04/18 02/04/18 02/04/18 Range/Units 11:43 14:30 14:30 WBC 14.8 H (4.5-11.0) K/mm3 RBC 2.56 L (3.65-5.03) M/mm3 Hgb 8.9 L (11.8-15.2) gm/dl Hct 25.8 L (35.5-45.6) % MCV 101 H (84-94) fl MCH 35 H (28-32) pg MCHC (32-34) % RDW 13.1 L (13.2-15.2) % Lymph % (Auto) 7.5 L (13.4-35.0) % [place] % (Auto) 9.3 H (0.0-7.3) % Lymph # 1.1 L (1.2-5.4) K/mm3 [place] # 1.4 H (0.0-0.8) K/mm3 Seg Neutrophils % 82.3 H (40.0-70.0) % Seg Neutrophils # 12.2 H (1.8-7.7) K/mm3 POC ABG pH 7.470 H (7.35-7.45) POC ABG pO2 106 H (80-105) Sodium (137-145) mmol/L Potassium 3.0 L (3.6-5.0) mmol/L Chloride (98-107) mmol/L BUN 5 L (9-20) mg/dL Creatinine 0.4 L (0.8-1.5) mg/dL Glucose 130 H (75-100) mg/dL Calcium 8.1 L (8.4-10.2) mg/dL Phosphorus 2.20 L (2.5-4.5) mg/dL Magnesium 1.60 L (1.7-2.3) mg/dL 02/05/18 02/05/18 02/05/18 Range/Units 04:11 04:32 04:32 WBC 12.7 H (4.5-11.0) K/mm3 RBC 2.31 L (3.65-5.03) M/mm3 Hgb 8.0 L (11.8-15.2) gm/dl Hct 23.1 L (35.5-45.6) % MCV 100 H (84-94) fl MCH 35 H (28-32) pg MCHC 35 H (32-34) % RDW 13.0 L (13.2-15.2) % Lymph % (Auto) 10.3 L (13.4-35.0) % [place] % (Auto) 10.9 H (0.0-7.3) % Lymph # (1.2-5.4) K/mm3 [place] # 1.4 H (0.0-0.8) K/mm3 Seg Neutrophils % 77.7 H (40.0-70.0) % Seg Neutrophils # 9.8 H (1.8-7.7) K/mm3 POC ABG pH 7.471 H (7.35-7.45) POC ABG pO2 (80-105) Sodium 135 L (137-145) mmol/L Potassium 3.1 L (3.6-5.0) mmol/L Chloride 97.8 L (98-107) mmol/L BUN 6 L (9-20) mg/dL Creatinine 0.4 L (0.8-1.5) mg/dL Glucose 146 H (75-100) mg/dL Calcium 7.8 L (8.4-10.2) mg/dL Phosphorus (2.5-4.5) mg/dL Magnesium (1.7-2.3) mg/dL 02/05/18 Range/Units 08:14 WBC (4.5-11.0) K/mm3 RBC (3.65-5.03) M/mm3 Hgb (11.8-15.2) gm/dl Hct (35.5-45.6) % MCV (84-94) fl MCH (28-32) pg MCHC (32-34) % RDW (13.2-15.2) % Lymph % (Auto) (13.4-35.0) % [place] % (Auto) (0.0-7.3) % Lymph # (1.2-5.4) K/mm3 [place] # (0.0-0.8) K/mm3 Seg Neutrophils % (40.0-70.0) % Seg Neutrophils # (1.8-7.7) K/mm3 POC ABG pH (7.35-7.45) POC ABG pO2 (80-105) Sodium 135 L (137-145) mmol/L Potassium 3.0 L (3.6-5.0) mmol/L Chloride 95.4 L (98-107) mmol/L BUN 6 L (9-20) mg/dL Creatinine 0.4 L (0.8-1.5) mg/dL Glucose 154 H (75-100) mg/dL Calcium 7.9 L (8.4-10.2) mg/dL Phosphorus (2.5-4.5) mg/dL Magnesium (1.7-2.3) mg/dL
--- NOTE | 2018-02-05 11:48 | XRay Report ---
FINAL REPORT EXAM: XR ABDOMEN 1V AP HISTORY: OG placement TECHNIQUE: One view of the abdomen PRIORS: Portable chest 02/05/2018 FINDINGS: Distal tip of new gastric tube is present in the left upper quadrant of the abdomen, in the expected region of the proximal stomach. No evidence of intestinal distention or free air. No radiographic evidence of constipation. Pelvis not included in field of view. Interval clearing of right lower lung. Interstitial opacity in left lung base is slightly less prominent. IMPRESSION: Nonspecific bowel gas pattern without intestinal distention. Distal tip of new gastric tube is present in the left upper quadrant of the abdomen, in the expected region of the proximal stomach. Decreased interstitial opacity in left lung base may reflect improvement of mild edema and/or pneumonitis
[2018-02-05] MEDS: NACL 0.9% 1000 ML 1,000 ML IV SCH (13:37)
--- NOTE | 2018-02-05 13:51 | Progress Note ---
Assessment and Plan Acute Hypoxemic Respiratory Failure on MVS Massive Epistaxis (Post Traumatic) Possible G.I. Bleed H/O EtOH Abuse Anemia (Macrocytic) Hypokalemia - extubate if passes SBT - ENT consult placed for definitive therapy and input appreciated - ABG after 2 hours on PSV 03/19 today - continue daily SAT's - continue enteral nutrition as tolerated - stopped IVF - get Mag and Phos levels addressed (mag replaced) - continue daily MVI - CIWA protocol and watch for DT's - nutrition consult placed - VAP bundle addressed - continue GI prophylaxis - EGD reviewed ; no active bleeding (manage per GI recs otherwise) - continue other care per attending / other consultants .... re-evaluate in am & prn The high probability of a clinically significant, sudden or life-threatening deterioration of the respiratory, hematologic system(s) required my full and direct attention, intervention and personal management. The aggregate critical care time was [35] minutes without overlap. Time includes spent on; [x] Data Review and interpretation [x] Patient assessment and monitoring of vital signs [x] Documentation [x] Medication orders and management Subjective Date of service: 02/05/18 Principal diagnosis: Acute GI Bleeding; EtOH Abuse; Hematemesis Interval history: Patient is seen today for: Acute GI Bleeding; EtOH Abuse; Hematemesis; Massive Epistaxis Seen and examined at bedside; 24hour events reviewed; nursing and respiratory care staff consulted; no adverse overnight events reported to me; resting in bed ; no more active epistaxis; No N/V/F/C; tolerating SBT well so far today Objective Vital Signs - 12hr 02/05/18 02/05/18 02/05/18 02:00 02:16 02:30 Temperature Pulse Rate 95 H 96 H 94 H Pulse Rate [ From Monitor] Respiratory 22 21 22 Rate Blood Pressure 111/68 111/68 106/67 O2 Sat by Pulse 97 97 98 Oximetry 02/05/18 02/05/18 02/05/18 02:46 03:00 03:16 Temperature 98.7 F Pulse Rate 99 H 100 H 104 H Pulse Rate [ From Monitor] Respiratory 25 H 25 H 27 H Rate Blood Pressure 106/67 106/67 112/70 O2 Sat by Pulse 99 98 99 Oximetry 02/05/18 02/05/18 02/05/18 03:30 03:46 04:00 Temperature Pulse Rate 88 88 100 H Pulse Rate [ 108 H From Monitor] Respiratory 22 22 28 H Rate Blood Pressure 126/74 126/74 123/78 O2 Sat by Pulse 99 98 100 Oximetry 02/05/18 02/05/18 02/05/18 04:01 04:16 04:30 Temperature Pulse Rate 98 H 99 H 97 H Pulse Rate [ From Monitor] Respiratory 27 H 29 H Rate Blood Pressure 123/78 123/78 110/68 O2 Sat by Pulse 100 100 100 Oximetry 02/05/18 02/05/18 02/05/18 04:46 05:00 05:16 Temperature Pulse Rate 94 H 92 H 93 H Pulse Rate [ From Monitor] Respiratory 24 23 23 Rate Blood Pressure 110/68 100/58 100/58 O2 Sat by Pulse 97 99 97 Oximetry 02/05/18 02/05/18 02/05/18 05:30 05:46 06:00 Temperature Pulse Rate 90 106 H 102 H Pulse Rate [ From Monitor] Respiratory 23 16 28 H Rate Blood Pressure 103/63 103/63 110/74 O2 Sat by Pulse 99 99 99 Oximetry 02/05/18 02/05/18 02/05/18 06:30 07:00 07:30 Temperature Pulse Rate 99 H 106 H 92 H Pulse Rate [ From Monitor] Respiratory 27 H 22 24 Rate Blood Pressure 110/74 100/71 103/62 O2 Sat by Pulse 96 98 99 Oximetry 02/05/18 02/05/18 02/05/18 07:53 08:00 08:26 Temperature 98.6 F Pulse Rate 96 H 89 Pulse Rate [ 90 From Monitor] Respiratory 27 H Rate Blood Pressure 121/69 121/69 O2 Sat by Pulse 98 99 Oximetry 02/05/18 02/05/18 02/05/18 08:30 09:00 09:30 Temperature Pulse Rate 94 H 116 H 110 H Pulse Rate [ From Monitor] Respiratory 27 H 18 17 Rate Blood Pressure 114/63 114/63 147/71 O2 Sat by Pulse 99 96 83 L Oximetry 02/05/18 02/05/18 02/05/18 10:00 10:30 11:00 Temperature Pulse Rate 114 H 95 H 99 H Pulse Rate [ From Monitor] Respiratory 34 H 22 22 Rate Blood Pressure 134/75 103/61 104/68 O2 Sat by Pulse 100 98 100 Oximetry 02/05/18 02/05/1802/05/18 11:30 12:00 12:30 Temperature 99.7 F H Pulse Rate 94 H 86 85 Pulse Rate [ From Monitor] Respiratory 17 18 18 Rate Blood Pressure 108/69 116/66 109/68 O2 Sat by Pulse 100 100 100 Oximetry Constitutional: no acute distress, alert, other (middle aged AAM normocephalic and atraumatic on MVS) Eyes: non-icteric ENT: oropharynx moist, other (ETT 23 cm TRANG) Neck: supple, no lymphadenopathy, no JVD, other (no epistaxis) Effort: mildly labored Ascultation: Bilateral: diminished breath sounds, rhonchi (scant) Percussion: Bilateral: not dull Cardiovascular: regular rate and rhythm, other (No R/M) Gastrointestinal: normoactive bowel sounds, soft, non-tender, non-distended, other (No palpable HSM) Integumentary: other (poor turgor) Extremities: no cyanosis, no edema, pulses normal, no ischemia or petechiae Neurologic: normal mental status, non-focal exam (grossly), pupils equal and round, motor strength normal and Psychiatric: mood appropriate, affect normal CBC and BMP: 02/06/18 04:53 02/06/18 04:53 ABG, PT/INR, D-dimer: ABG POC ABG pH 7.471 (7.35-7.45) H 02/05/18 04:11 POC ABG pCO2 39.6 (35-45) 02/05/18 04:11 POC ABG pO2 81 (80-105) 02/05/18 04:11 POC ABG HCO3 28.9 02/05/18 04:11 POC ABG Total CO2 30 02/05/18 04:11 POC ABG O2 Sat 97 02/05/18 04:11 PT/INR, D-dimer PT 11.6 Sec. (12.2-14.9) L 02/01/18 04:17 INR 0.81 (0.87-1.13) L 02/01/18 04:17 Abnormal lab findings: Abnormal Labs 02/01/18 02/01/18 02/01/18 04:17 04:17 04:17 WBC RBC Hgb 15.3 H Hct MCV 100 H MCH 34 H MCHC RDW Plt Count Lymph % (Auto) 45.8 H [place] % (Auto) 7.5 H Lymph # [place] # Seg Neutrophils % Seg Neutrophils # PT 11.6 L INR 0.81 L POC ABG pH POC ABG pCO2 POC ABG pO2 Sodium Potassium Chloride BUN 7 L Creatinine 0.5 L Glucose 107 H Calcium Phosphorus Magnesium AST 107 H Total Protein Albumin Plasma/Serum Alcohol Hepatitis C Antibody 02/01/18 02/01/18 02/01/18 04:56 07:18 13:04 WBC RBC 3.33 L Hgb 11.1 L Hct 33.2 L D 32.2 L MCV 100 H MCH 36 H MCHC 36 H RDW Plt Count Lymph % (Auto) [place] % (Auto) Lymph # [place] # Seg Neutrophils % Seg Neutrophils # PT INR POC ABG pH POC ABG pCO2 POC ABG pO2 Sodium Potassium Chloride BUN Creatinine Glucose Calcium Phosphorus Magnesium AST Total Protein Albumin Plasma/Serum Alcohol 0.31 H Hepatitis C Antibody 02/01/18 02/01/18 02/01/18 14:08 14:41 17:22 WBC RBC Hgb 10.7 L Hct 31.2 L MCV MCH MCHC RDW Plt Count Lymph % (Auto) [place] % (Auto) Lymph # [place] # Seg Neutrophils % Seg Neutrophils # PT INR POC ABG pH 7.287 L 7.330 L POC ABG pCO2 50.0 H POC ABG pO2 54 L 114 H Sodium Potassium Chloride BUN Creatinine Glucose Calcium Phosphorus Magnesium AST Total Protein Albumin Plasma/Serum Alcohol Hepatitis C Antibody 02/02/18 02/02/18 02/03/18 00:17 05:28 04:51 WBC RBC Hgb 9.8 L Hct 28.3 L MCV MCH MCHC RDW Plt Count Lymph % (Auto) [place] % (Auto) Lymph # [place] # Seg Neutrophils % Seg Neutrophils # PT INR POC ABG pH 7.510 H POC ABG pCO2 POC ABG pO2 129 H Sodium Potassium Chloride BUN Creatinine Glucose Calcium Phosphorus Magnesium AST Total Protein Albumin Plasma/Serum Alcohol Hepatitis C Antibody Reactive A 02/03/18 02/03/18 02/03/18 04:51 04:51 07:20 WBC 12.9 H RBC 2.51 L Hgb 8.6 L Hct 25.0 L MCV 100 H MCH 34 H MCHC 35 H RDW Plt Count 123 L Lymph % (Auto) 10.9 L [place] % (Auto) Lymph # [place] # Seg Neutrophils % 82.3 H Seg Neutrophils # 10.6 H PT INR POC ABG pH 7.501 H POC ABG pCO2 POC ABG pO2 Sodium Potassium 3.0 L D Chloride BUN 6 L Creatinine 0.5 L Glucose 114 H Calcium 7.8 L D Phosphorus Magnesium AST 42 H Total Protein 5.6 L D Albumin 2.6 L Plasma/Serum Alcohol Hepatitis C Antibody 02/04/18 02/04/18 02/04/18 05:34 11:43 14:30 WBC RBC Hgb Hct MCV MCH MCHC RDW Plt Count Lymph % (Auto) [place] % (Auto) Lymph # [place] # Seg Neutrophils % Seg Neutrophils # PT INR POC ABG pH 7.533 H 7.470 H POC ABG pCO2 32.4 L POC ABG pO2 106 H Sodium Potassium 3.0 L Chloride BUN 5 L Creatinine 0.4 L Glucose 130 H Calcium 8.1 L Phosphorus 2.20 L Magnesium 1.60 L AST Total Protein Albumin Plasma/Serum Alcohol Hepatitis C Antibody 02/04/18 02/05/18 02/05/18 14:30 04:11 04:32 WBC 14.8 H 12.7 H RBC 2.56 L 2.31 L Hgb 8.9 L 8.0 L Hct 25.8 L 23.1 L MCV 101 H 100 H MCH 35 H 35 H MCHC 35 H RDW 13.1 L 13.0 L Plt Count Lymph % (Auto) 7.5 L 10.3 L [place] % (Auto) 9.3 H 10.9 H Lymph # 1.1 L [place] # 1.4 H 1.4 H Seg Neutrophils % 82.3 H 77.7 H Seg Neutrophils # 12.2 H 9.8 H PT INR POC ABG pH 7.471 H POC ABG pCO2 POC ABG pO2 Sodium Potassium Chloride BUN Creatinine Glucose Calcium Phosphorus Magnesium AST Total Protein Albumin Plasma/Serum Alcohol Hepatitis C Antibody 02/05/18 02/05/18 02/05/18 04:32 08:14 08:14 WBC RBC Hgb Hct MCV MCH MCHC RDW Plt Count Lymph % (Auto) [place] % (Auto) Lymph # [place] # Seg Neutrophils % Seg Neutrophils # PT INR POC ABG pH POC ABG pCO2 POC ABG pO2 Sodium 135 L 135 L Potassium 3.1 L 3.0 L Chloride 97.8 L 95.4 L BUN 6 L 6 L Creatinine 0.4 L 0.4 L Glucose 146 H 154 H Calcium 7.8 L 7.9 L Phosphorus Magnesium 1.50 L AST Total Protein Albumin Plasma/Serum Alcohol Hepatitis C Antibody 02/05/18 08:14 WBC RBC Hgb Hct MCV MCH MCHC RDW Plt Count Lymph % (Auto) [place] % (Auto) Lymph # [place] # Seg Neutrophils % Seg Neutrophils # PT INR POC ABG pH POC ABG pCO2 POC ABG pO2 Sodium Potassium Chloride BUN Creatinine Glucose Calcium Phosphorus 2.00 L Magnesium AST Total Protein Albumin Plasma/Serum Alcohol Hepatitis C Antibody Chest x-ray: image reviewed Allied health notes reviewed: nursing
[2018-02-05] MEDS ORDERED: MAGNESIUM SULFATE 2GM/50ML 2 GM/50 ML BAG IV ONE (14:00)
[2018-02-05] MEDS: ZINC OXIDE TP SCH (21:49)
[2018-02-05] MEDS: HABITROL TD SCH (21:49)
[2018-02-05 23:19] LABS: BUN/Creatinine Ratio 13; Blood Urea Nitrogen 5 mg/dL (9-20); Calcium 8.4 mg/dL (8.4-10.2); Hemolysis Index 1
[2018-02-05] MEDS: ATIVAN IV PRN (23:40)
[2018-02-05] MEDS ORDERED: LOPRESSOR IV ONE (23:51)
[2018-02-06] MEDS ORDERED: NACL 0.9% IV ONE (01:29)
[2018-02-06] MEDS ORDERED: KPHOS IV ONE (01:29)
[2018-02-06] MEDS ORDERED: MAGNESIUM SULFATE IV ONE (01:29)
[2018-02-06] MEDS ORDERED: MAGNESIUM SULFATE 1 GM in NACL 0.9% 50 ML IV ONE (01:31)
[2018-02-06] MEDS: KCL 10MEQ/100ML 10 MEQ/100 ML BAG IV SCH ×3 (01:46→03:33)
[2018-02-06] MEDS: NACL 0.9% 1000 ML 1,000 ML IV SCH ×2 (02:22→17:57)
--- NOTE | 2018-02-06 04:02 | XRay Report ---
FINAL REPORT EXAM: XR CHEST 1V AP HISTORY: follow up respiratory failure COMPARISON: February 05, 2018. FINDINGS: Frontal view(s) of the chest obtained. Heart borderline enlarged. Previously seen ETT and NG tube have been removed. Hazy interstitial densities at the lung bases progressed from prior study concerning for worsening pneumonitis versus edema. No large effusion or pneumothorax. IMPRESSION: Increasing hazy opacities mid to lower lungs concerning for worsening pneumonitis versus edema. Removal of ET tube and NG tube.
[2018-02-06 05:09] LABS: Basophils % (Auto) 0.3 % (0.0-1.8); Eosinophils # (Auto) 0.1 K/mm3 (0.0-0.4); Eosinophils % (Auto) 1.1 % (0.0-4.3); Hematocrit 21.4 % (35.5-45.6); Hemoglobin 7.5 gm/dl (11.8-15.2); Lymphocytes # (Auto) 1.3 K/mm3 (1.2-5.4); Lymphocytes % (Auto) 11.3 % (13.4-35.0); Mean Corpuscular HGB Conc 35 % (32-34); Mean Corpuscular Hemoglobin 35 pg (28-32); Mean Corpuscular Volume 100 fl (84-94); Monocytes # (Auto) 1.6 K/mm3 (0.0-0.8); Monocytes % (Auto) 13.9 % (0.0-7.3); Platelet Count 202 K/mm3 (140-440); Red Blood Count 2.15 M/mm3 (3.65-5.03); Red Cell Distribution Width 12.8 % (13.2-15.2)
[2018-02-06 05:29] LABS: BUN/Creatinine Ratio 13; Blood Urea Nitrogen 5 mg/dL (9-20); Calcium 8.1 mg/dL (8.4-10.2); Hemolysis Index 13
[2018-02-06] MEDS: VITAMIN B-1 PO SCH (09:20)
[2018-02-06] MEDS: THERAGRAN Tab PO SCH (09:20)
[2018-02-06] MEDS: HABITROL TD SCH (09:21)
[2018-02-06] MEDS: AUGMENTIN ORAL LIQD PO SCH (09:21)
[2018-02-06] MEDS: PROTONIX FEEDTUBE SCH (09:21)
--- NOTE | 2018-02-06 09:36 | Progress Note ---
Hospitalist Physical - Constitutional Vitals: Temp Pulse Resp BP Pulse Ox 98.2 F 99 H 33 H 126/70 98 02/06/18 04:00 02/06/18 07:30 02/06/18 07:30 02/06/18 08:30 02/06/18 08:30 General appearance: Present: no acute distress Results - Labs CBC & Chem 7: 02/06/18 04:53 02/06/18 04:53 Labs: Laboratory Last Values WBC 11.7 K/mm3 (4.5-11.0) H 02/06/18 04:53 RBC 2.15 M/mm3 (3.65-5.03) L 02/06/18 04:53 Hgb 7.5 gm/dl (11.8-15.2) L 02/06/18 04:53 Hct 21.4 % (35.5-45.6) L 02/06/18 04:53 MCV 100 fl (84-94) H 02/06/18 04:53 MCH 35 pg (28-32) H 02/06/18 04:53 MCHC 35 % (32-34) H 02/06/18 04:53 RDW 12.8 % (13.2-15.2) L 02/06/18 04:53 Plt Count 202 K/mm3 (140-440) 02/06/18 04:53 Lymph % (Auto) 11.3 % (13.4-35.0) L 02/06/18 04:53 [place] % (Auto) 13.9 % (0.0-7.3) H 02/06/18 04:53 Eos % (Auto) 1.1 % (0.0-4.3) 02/06/18 04:53 Baso % (Auto) 0.3 % (0.0-1.8) 02/06/18 04:53 Lymph # 1.3 K/mm3 (1.2-5.4) 02/06/18 04:53 [place] # 1.6 K/mm3 (0.0-0.8) H 02/06/18 04:53 Eos # 0.1 K/mm3 (0.0-0.4) 02/06/18 04:53 Baso # 0.0 K/mm3 (0.0-0.1) 02/06/18 04:53 Seg Neutrophils % 73.4 % (40.0-70.0) H 02/06/18 04:53 Seg Neutrophils # 8.6 K/mm3 (1.8-7.7) H 02/06/18 04:53 PT 11.6 Sec. (12.2-14.9) L 02/01/18 04:17 INR 0.81 (0.87-1.13) L 02/01/18 04:17 APTT 24.7 Sec. (24.2-36.6) 02/01/18 04:17 POC ABG pH 7.457 (7.35-7.45) H 02/05/18 16:09 POC ABG pCO2 43.4 (35-45) 02/05/18 16:09 POC ABG pO2 85 (80-105) 02/05/18 16:09 POC ABG HCO3 30.7 02/05/18 16:09 POC ABG Total CO2 32 02/05/18 16:09 POC ABG O2 Sat 97 02/05/18 16:09 POC ABG Base Excess 7 02/05/18 16:09 FiO2 30 % 02/05/18 16:09 Sodium 140 mmol/L (137-145) 02/06/18 04:53 Potassium 3.9 mmol/L (3.6-5.0) D 02/06/18 04:53 Chloride 103.4 mmol/L (98-107) 02/06/18 04:53 Carbon Dioxide 26 mmol/L (22-30) 02/06/18 04:53 Anion Gap 15 mmol/L 02/06/18 04:53 BUN 5 mg/dL (9-20) L 02/06/18 04:53 Creatinine 0.4 mg/dL (0.8-1.5) L 02/06/18 04:53 Estimated GFR > 60 ml/min 02/06/18 04:53 BUN/Creatinine Ratio 13 % 02/06/18 04:53 Glucose 94 mg/dL (75-100) 02/06/18 04:53 Calcium 8.1 mg/dL (8.4-10.2) L 02/06/18 04:53 Phosphorus 3.30 mg/dL (2.5-4.5) D 02/06/18 06:00 Magnesium 2.10 mg/dL (1.7-2.3) 02/06/18 06:00 Total Bilirubin 1.00 mg/dL (0.1-1.2) 02/03/18 04:51 AST 42 units/L (5-40) H 02/03/18 04:51 ALT 21 units/L (7-56) 02/03/18 04:51 Alkaline Phosphatase 36 units/L (35-129) 02/03/18 04:51 Total Protein 5.6 g/dL (6.3-8.2) L D 02/03/18 04:51 Albumin 2.6 g/dL (3.9-5) L 02/03/18 04:51 Albumin/Globulin Ratio 0.9 % 02/03/18 04:51 Triglycerides 55 mg/dL (2-149) 02/04/18 11:57 Lipase 49 units/L (13-60) 02/01/18 04:17 Plasma/Serum Alcohol 0.31 % (0-0.07) H 02/01/18 04:56 Hepatitis A IgM Ab Non-reactive (NonReactive) 02/03/18 04:51 Hep Bs Antigen Non-reactive (Negative) 02/03/18 04:51 Hep B Core IgM Ab Non-reactive (NonReactive) 02/03/18 04:51 Hepatitis C Antibody Reactive (NonReactive) A 02/03/18 04:51 Blood Type O POSITIVE 02/01/18 04:17 Antibody Screen Negative 02/01/18 04:17
--- NOTE | 2018-02-06 14:02 | Progress Note ---
Assessment and Plan - Patient Problems (1) Epistaxis Current Visit: Yes Status: Acute Plan to address problem: No active bleeding at this time, saline nasal spray Zinc oxide will started Augmentin (2) Respiratory failure Current Visit: Yes Status: Acute Plan to address problem: stable on nasal canula O2, add humidification (3) Ventilator dependent Current Visit: Yes Status: Acute Plan to address problem: titrate O2 to keep sat >=92% Subjective Principal diagnosis: Acute GI Bleeding; EtOH Abuse; Hematemesis Interval history: Pt. resting comfortably. No further bleeding/epistaxis, alert & wants to go home Objective - Constitutional Vitals: Vital Signs - 12hr 02/06/18 02/06/18 02/06/18 02:00 02:30 03:00 Temperature Pulse Rate 119 H 115 H 114 H Pulse Rate [ From Monitor] Respiratory 21 29 H 33 H Rate Blood Pressure 124/58 115/58 113/53 O2 Sat by Pulse 98 99 100 Oximetry 02/06/18 02/06/18 02/06/18 03:30 04:00 04:30 Temperature 98.2 F Pulse Rate 110 H 106 H 102 H Pulse Rate [ 107 H From Monitor] Respiratory 28 H 24 24 Rate Blood Pressure 107/63 106/57 111/59 O2 Sat by Pulse 100 100 100 Oximetry 02/06/18 02/06/18 02/06/18 05:00 05:30 06:00 Temperature Pulse Rate 100 H 106 H 102 H Pulse Rate [ From Monitor] Respiratory 25 H 13 29 H Rate Blood Pressure 107/60 107/67 107/67 O2 Sat by Pulse 100 99 98 Oximetry 02/06/18 02/06/18 02/06/18 06:30 07:00 07:30 Temperature Pulse Rate 97 H 90 99 H Pulse Rate [ From Monitor] Respiratory 19 23 33 H Rate Blood Pressure 119/69 119/69 119/72 O2 Sat by Pulse 100 99 97 Oximetry 02/06/18 02/06/18 02/06/18 08:00 08:30 09:00 Temperature Pulse Rate 101 H Pulse Rate [ From Monitor] Respiratory 45 H Rate Blood Pressure 119/72 126/70 115/77 O2 Sat by Pulse 97 98 96 Oximetry 02/06/18 02/06/18 02/06/18 09:30 10:00 10:30 Temperature Pulse Rate 98 H 98 H 94 H Pulse Rate [ From Monitor] Respiratory 30 H 36 H 29 H Rate Blood Pressure 128/71 132/68 135/66 O2 Sat by Pulse 96 96 97 Oximetry 02/06/18 02/06/18 02/06/18 11:00 11:30 12:00 Temperature 97.4 F L Pulse Rate 102 H 112 H 110 H Pulse Rate [ From Monitor] Respiratory 29 H 25 H 18 Rate Blood Pressure 132/67 127/63 119/78 O2 Sat by Pulse 96 92 94 Oximetry 02/06/18 02/06/18 02/06/18 12:30 13:00 13:30 Temperature Pulse Rate 102 H 112 H 116 H Pulse Rate [ From Monitor] Respiratory 25 H 38 H 37 H Rate Blood Pressure 139/77 132/71 112/54 O2 Sat by Pulse 95 96 96 Oximetry 02/06/18 13:47 Temperature Pulse Rate Pulse Rate [ From Monitor] Respiratory Rate Blood Pressure O2 Sat by Pulse 95 Oximetry General appearance: Present: no acute distress - EENT Eyes: PERRL, EOM intact ENT: hearing intact, poor dentition, other (no further bleeding, nasal canula O2 in place, ) Ears: bilateral: other (pinna w/o breakdown, hearing grossly intact) - Neck Neck: supple, normal ROM - Respiratory Respiratory effort: normal, other (sat >92% on nasal canula O2) Respiratory: bilateral: other (equal excursion) - Breasts Breasts: deferred - Cardiovascular Rhythm: regular Heart Sounds: Present: S1 & S2 Extremity abnormal: clubbing - Gastrointestinal General gastrointestinal: Present: soft, non-tender Rectal Exam: deferred - Genitourinary Male genitourinary: deferred - Integumentary Integumentary: clear, warm, dry - Musculoskeletal Musculoskeletal: strength equal bilaterally - Neurologic Neurologic: CNII-XII intact - Psychiatric Psychiatric: appropriate mood/affect - Labs CBC & Chem 7: 02/06/18 04:53 02/06/18 04:53 Labs: Abnormal lab results 02/05/18 02/05/18 02/06/18 Range/Units 16:09 22:39 04:53 WBC 11.7 H (4.5-11.0) K/mm3 RBC 2.15 L (3.65-5.03) M/mm3 Hgb 7.5 L (11.8-15.2) gm/dl Hct 21.4 L (35.5-45.6) % MCV 100 H (84-94) fl MCH 35 H (28-32) pg MCHC 35 H (32-34) % RDW 12.8 L (13.2-15.2) % Lymph % (Auto) 11.3 L (13.4-35.0) % [place] % (Auto) 13.9 H (0.0-7.3) % [place] # 1.6 H (0.0-0.8) K/mm3 Seg Neutrophils % 73.4 H (40.0-70.0) % Seg Neutrophils # 8.6 H (1.8-7.7) K/mm3 POC ABG pH 7.457 H (7.35-7.45) Sodium 135 L (137-145) mmol/L Potassium 3.2 L (3.6-5.0) mmol/L Chloride 96.0 L (98-107) mmol/L BUN 5 L (9-20) mg/dL Creatinine 0.4 L (0.8-1.5) mg/dL Calcium (8.4-10.2) mg/dL Phosphorus 1.90 L (2.5-4.5) mg/dL 02/06/18 Range/Units 04:53 WBC (4.5-11.0) K/mm3 RBC (3.65-5.03) M/mm3 Hgb (11.8-15.2) gm/dl Hct (35.5-45.6) % MCV (84-94) fl MCH (28-32) pg MCHC (32-34) % RDW (13.2-15.2) % Lymph % (Auto) (13.4-35.0) % [place] % (Auto) (0.0-7.3) % [place] # (0.0-0.8) K/mm3 Seg Neutrophils % (40.0-70.0) % Seg Neutrophils # (1.8-7.7) K/mm3 POC ABG pH (7.35-7.45) Sodium (137-145) mmol/L Potassium (3.6-5.0) mmol/L Chloride (98-107) mmol/L BUN 5 L (9-20) mg/dL Creatinine 0.4 L (0.8-1.5) mg/dL Calcium 8.1 L (8.4-10.2) mg/dL Phosphorus (2.5-4.5) mg/dL
--- NOTE | 2018-02-06 14:53 | Progress Note ---
Assessment and Plan Acute Hypoxemic Respiratory Failure on MVS Massive Epistaxis (Post Traumatic) Possible G.I. Bleed H/O EtOH Abuse Anemia (Macrocytic) Hypokalemia - doing well post extubation - ST evaluation if fails bedside dysphagia screen - continue daily MVI - continue CIWA protocol and watch for DT's - continue GI prophylaxis - EGD reviewed ; no active bleeding (manage per GI recs otherwise) - continue other care per attending / other consultants - transfer to medical floor OK .... re-evaluate in am & prn ....... 35' Subjective Date of service: 02/06/18 Principal diagnosis: Acute GI Bleeding; EtOH Abuse; Hematemesis Interval history: Patient is seen today for: Acute GI Bleeding; EtOH Abuse; Hematemesis; Massive Epistaxis Seen and examined at bedside; 24hour events reviewed; nursing and respiratory care staff consulted; no adverse overnight events reported to me; resting in bed ; doing very well so far post extubation; no gross epistaxis; denies acute chest pains or increased SOB Objective Vital Signs - 12hr 02/06/18 02/06/18 02/06/18 03:00 03:30 04:00 Temperature 98.2 F Pulse Rate 114 H 110 H 106 H Pulse Rate [ 107 H From Monitor] Respiratory 33 H 28 H 24 Rate Blood Pressure 113/53 107/63 106/57 O2 Sat by Pulse 100 100 100 Oximetry 02/06/18 02/06/18 02/06/18 04:30 05:00 05:30 Temperature Pulse Rate 102 H 100 H 106 H Pulse Rate [ From Monitor] Respiratory 24 25 H 13 Rate Blood Pressure 111/59 107/60 107/67 O2 Sat by Pulse 100 100 99 Oximetry 02/06/18 02/06/18 02/06/18 06:00 06:30 07:00 Temperature Pulse Rate 102 H 97 H 90 Pulse Rate [ From Monitor] Respiratory 29 H 19 23 Rate Blood Pressure 107/67 119/69 119/69 O2 Sat by Pulse 98 100 99 Oximetry 02/06/18 02/06/18 02/06/18 07:30 08:00 08:30 Temperature Pulse Rate 99 H Pulse Rate [ From Monitor] Respiratory 33 H Rate Blood Pressure 119/72 119/72 126/70 O2 Sat by Pulse 97 97 98 Oximetry 02/06/18 02/06/18 02/06/18 09:00 09:30 10:00 Temperature Pulse Rate 101 H 98 H 98 H Pulse Rate [ From Monitor] Respiratory 45 H 30 H 36 H Rate Blood Pressure 115/77 128/71 132/68 O2 Sat by Pulse 96 96 96 Oximetry 02/06/18 02/06/18 02/06/18 10:30 11:00 11:30 Temperature Pulse Rate 94 H 102 H 112 H Pulse Rate [ From Monitor] Respiratory 29 H 29 H 25 H Rate Blood Pressure 135/66 132/67 127/63 O2 Sat by Pulse 97 96 92 Oximetry 02/06/18 02/06/18 02/06/18 12:00 12:30 13:00 Temperature 97.4 F L Pulse Rate 110 H 102 H 112 H Pulse Rate [ From Monitor] Respiratory 18 25 H 38 H Rate Blood Pressure 119/78 139/77 132/71 O2 Sat by Pulse 94 95 96 Oximetry 02/06/18 02/06/18 13:30 13:47 Temperature Pulse Rate 116 H Pulse Rate [ From Monitor] Respiratory 37 H Rate Blood Pressure 112/54 O2 Sat by Pulse 96 95 Oximetry Constitutional: no acute distress, alert, other (middle aged AAM normocephalic and atraumatic on MVS) Eyes: non-icteric ENT: oropharynx moist, other (extubated) Neck: supple, no lymphadenopathy, no JVD, other (no epistaxis) Effort: normal Ascultation: Bilateral: diminished breath sounds, rhonchi (scant in bases) Percussion: Bilateral: not dull Cardiovascular: regular rate and rhythm, other (No R/M) Gastrointestinal: normoactive bowel sounds, soft, non-tender, non-distended, other (No palpable HSM) Integumentary: other (poor turgor) Extremities: no cyanosis, no edema, pulses normal, no ischemia or petechiae Neurologic: normal mental status, non-focal exam (grossly), pupils equal and round, motor strength normal and Psychiatric: mood appropriate, affect normal CBC and BMP: 02/07/18 02:15 02/07/18 02:15 ABG, PT/INR, D-dimer: ABG POC ABG pH 7.457 (7.35-7.45) H 02/05/18 16:09 POC ABG pCO2 43.4 (35-45) 02/05/18 16:09 POC ABG pO2 85 (80-105) 02/05/18 16:09 POC ABG HCO3 30.7 02/05/18 16:09 POC ABG Total CO2 32 02/05/18 16:09 POC ABG O2 Sat 97 02/05/18 16:09 PT/INR, D-dimer PT 11.6 Sec. (12.2-14.9) L 02/01/18 04:17 INR 0.81 (0.87-1.13) L 02/01/18 04:17 Abnormal lab findings: Abnormal Labs 02/01/18 02/01/18 02/01/18 04:17 04:17 04:17 WBC RBC Hgb 15.3 H Hct MCV 100 H MCH 34 H MCHC RDW Plt Count Lymph % (Auto) 45.8 H [place] % (Auto) 7.5 H Lymph # [place] # Seg Neutrophils % Seg Neutrophils # PT 11.6 L INR 0.81 L POC ABG pH POC ABG pCO2 POC ABG pO2 Sodium Potassium Chloride BUN 7 L Creatinine 0.5 L Glucose 107 H Calcium Phosphorus Magnesium AST 107 H Total Protein Albumin Plasma/Serum Alcohol Hepatitis C Antibody 02/01/18 02/01/18 02/01/18 04:56 07:18 13:04 WBC RBC 3.33 L Hgb 11.1 L Hct 33.2 L D 32.2 L MCV 100 H MCH 36 H MCHC 36 H RDW Plt Count Lymph % (Auto) [place] % (Auto) Lymph # [place] # Seg Neutrophils % Seg Neutrophils # PT INR POC ABG pH POC ABG pCO2 POC ABG pO2 Sodium Potassium Chloride BUN Creatinine Glucose Calcium Phosphorus Magnesium AST Total Protein Albumin Plasma/Serum Alcohol 0.31 H Hepatitis C Antibody 02/01/18 02/01/18 02/01/18 14:08 14:41 17:22 WBC RBC Hgb 10.7 L Hct 31.2 L MCV MCH MCHC RDW Plt Count Lymph % (Auto) [place] % (Auto) Lymph # [place] # Seg Neutrophils % Seg Neutrophils # PT INR POC ABG pH 7.287 L 7.330 L POC ABG pCO2 50.0 H POC ABG pO2 54 L 114 H Sodium Potassium Chloride BUN Creatinine Glucose Calcium Phosphorus Magnesium AST Total Protein Albumin Plasma/Serum Alcohol Hepatitis C Antibody 02/02/18 02/02/18 02/03/18 00:17 05:28 04:51 WBC RBC Hgb 9.8 L Hct 28.3 L MCV MCH MCHC RDW Plt Count Lymph % (Auto) [place] % (Auto) Lymph # [place] # Seg Neutrophils % Seg Neutrophils # PT INR POC ABG pH 7.510 H POC ABG pCO2 POC ABG pO2 129 H Sodium Potassium Chloride BUN Creatinine Glucose Calcium Phosphorus Magnesium AST Total Protein Albumin Plasma/Serum Alcohol Hepatitis C Antibody Reactive A 02/03/18 02/03/18 02/03/18 04:51 04:51 07:20 WBC 12.9 H RBC 2.51 L Hgb 8.6 L Hct 25.0 L MCV 100 H MCH 34 H MCHC 35 H RDW Plt Count 123 L Lymph % (Auto) 10.9 L [place] % (Auto) Lymph # [place] # Seg Neutrophils % 82.3 H Seg Neutrophils # 10.6 H PT INR POC ABG pH 7.501 H POC ABG pCO2 POC ABG pO2 Sodium Potassium 3.0 L D Chloride BUN 6 L Creatinine 0.5 L Glucose 114 H Calcium 7.8 L D Phosphorus Magnesium AST 42 H Total Protein 5.6 L D Albumin 2.6 L Plasma/Serum Alcohol Hepatitis C Antibody 02/04/18 02/04/18 02/04/18 05:34 11:43 14:30 WBC RBC Hgb Hct MCV MCH MCHC RDW Plt Count Lymph % (Auto) [place] % (Auto) Lymph # [place] # Seg Neutrophils % Seg Neutrophils # PT INR POC ABG pH 7.533 H 7.470 H POC ABG pCO2 32.4 L POC ABG pO2 106 H Sodium Potassium 3.0 L Chloride BUN 5 L Creatinine 0.4 L Glucose 130 H Calcium 8.1 L Phosphorus 2.20 L Magnesium 1.60 L AST Total Protein Albumin Plasma/Serum Alcohol Hepatitis C Antibody 02/04/18 02/05/18 02/05/18 14:30 04:11 04:32 WBC 14.8 H 12.7 H RBC 2.56 L 2.31 L Hgb 8.9 L 8.0 L Hct 25.8 L 23.1 L MCV 101 H 100 H MCH 35 H 35 H MCHC 35 H RDW 13.1 L 13.0 L Plt Count Lymph % (Auto) 7.5 L 10.3 L [place] % (Auto) 9.3 H 10.9 H Lymph # 1.1 L [place] # 1.4 H 1.4 H Seg Neutrophils % 82.3 H 77.7 H Seg Neutrophils # 12.2 H 9.8 H PT INR POC ABG pH 7.471 H POC ABG pCO2 POC ABG pO2 Sodium Potassium Chloride BUN Creatinine Glucose Calcium Phosphorus Magnesium AST Total Protein Albumin Plasma/Serum Alcohol Hepatitis C Antibody 02/05/18 02/05/18 02/05/18 04:32 08:14 08:14 WBC RBC Hgb Hct MCV MCH MCHC RDW Plt Count Lymph % (Auto) [place] % (Auto) Lymph # [place] # Seg Neutrophils % Seg Neutrophils # PT INR POC ABG pH POC ABG pCO2 POC ABG pO2 Sodium 135 L 135 L Potassium 3.1 L 3.0 L Chloride 97.8 L 95.4 L BUN 6 L 6 L Creatinine 0.4 L 0.4 L Glucose 146 H 154 H Calcium 7.8 L 7.9 L Phosphorus Magnesium 1.50 L AST Total Protein Albumin Plasma/Serum Alcohol Hepatitis C Antibody 02/05/18 02/05/18 02/05/18 08:14 16:09 22:39 WBC RBC Hgb Hct MCV MCH MCHC RDW Plt Count Lymph % (Auto) [place] % (Auto) Lymph # [place] # Seg Neutrophils % Seg Neutrophils # PT INR POC ABG pH 7.457 H POC ABG pCO2 POC ABG pO2 Sodium 135 L Potassium 3.2 L Chloride 96.0 L BUN 5 L Creatinine 0.4 L Glucose Calcium Phosphorus 2.00 L 1.90 L Magnesium AST Total Protein Albumin Plasma/Serum Alcohol Hepatitis C Antibody 02/06/18 02/06/18 04:53 04:53 WBC 11.7 H RBC 2.15 L Hgb 7.5 L Hct 21.4 L MCV 100 H MCH 35 H MCHC 35 H RDW 12.8 L Plt Count Lymph % (Auto) 11.3 L [place] % (Auto) 13.9 H Lymph # [place] # 1.6 H Seg Neutrophils % 73.4 H Seg Neutrophils # 8.6 H PT INR POC ABG pH POC ABG pCO2 POC ABG pO2 Sodium Potassium Chloride BUN 5 L Creatinine 0.4 L Glucose Calcium 8.1 L Phosphorus Magnesium AST Total Protein Albumin Plasma/Serum Alcohol Hepatitis C Antibody Chest x-ray: image reviewed (no new infiltrate; extubated) Allied health notes reviewed: nursing
[2018-02-07] MEDS: AUGMENTIN ORAL LIQD PO SCH ×2 (00:01→14:49)
[2018-02-07] MEDS: ATIVAN IV PRN (00:03)
[2018-02-07] MEDS: ZINC OXIDE TP SCH (00:23)
[2018-02-07 03:03] LABS: Hematocrit 21.8 % (35.5-45.6); Hemoglobin 7.6 gm/dl (11.8-15.2); Mean Corpuscular HGB Conc 35 % (32-34); Mean Corpuscular Hemoglobin 35 pg (28-32); Mean Corpuscular Volume 100 fl (84-94); Platelet Count 261 K/mm3 (140-440); Red Blood Count 2.17 M/mm3 (3.65-5.03); Red Cell Distribution Width 12.7 % (13.2-15.2)
[2018-02-07 03:40] LABS: BUN/Creatinine Ratio 10; Blood Urea Nitrogen 5 mg/dL (9-20); Calcium 8.4 mg/dL (8.4-10.2); Hemolysis Index 2
[2018-02-07 06:44] LABS: Anisocytosis 1+; Band Neutrophils # (Manual) 0.1 K/mm3; Basophils % (Manual) 0 % (0.0-1.8); Hypochromasia 1+; Spherocytes Few; Total Cells Counted 100
--- NOTE | 2018-02-07 07:52 | XRay Report ---
AP CHEST: HISTORY: Followup respiratory failure Prominent bronchovascular markings in the lower lung zones have nearly resolved since 02/06/18. No evidence for consolidation, pleural effusion or pneumothorax. Heart and mediastinal structures are within normal limits. IMPRESSION: Near resolution of the lower lung opacities.
[2018-02-07] MEDS ORDERED: NACL 0.9% 1000 ML 1,000 ML with KCL 80 MEQ IV ONE (08:50)
--- NOTE | 2018-02-07 08:52 | Progress Note ---
Hospitalist Physical - Constitutional Vitals: Temp Pulse Resp BP Pulse Ox 98.7 F 103 H 26 H 132/73 92 02/07/18 05:35 02/07/18 05:35 02/07/18 05:35 02/07/18 05:35 02/07/18 05:35 General appearance: Present: no acute distress Results - Labs CBC & Chem 7: 02/07/18 02:15 02/07/18 02:15 Labs: Laboratory Last Values WBC 8.8 K/mm3 (4.5-11.0) 02/07/18 02:15 RBC 2.17 M/mm3 (3.65-5.03) L 02/07/18 02:15 Hgb 7.6 gm/dl (11.8-15.2) L 02/07/18 02:15 Hct 21.8 % (35.5-45.6) L 02/07/18 02:15 MCV 100 fl (84-94) H 02/07/18 02:15 MCH 35 pg (28-32) H 02/07/18 02:15 MCHC 35 % (32-34) H 02/07/18 02:15 RDW 12.7 % (13.2-15.2) L 02/07/18 02:15 Plt Count 261 K/mm3 (140-440) 02/07/18 02:15 Lymph % (Auto) 11.3 % (13.4-35.0) L 02/06/18 04:53 [place] % (Auto) Technical Rec[employer]iter 02/07/18 02:15 Eos % (Auto) 1.1 % (0.0-4.3) 02/06/18 04:53 Baso % (Auto) 0.3 % (0.0-1.8) 02/06/18 04:53 Lymph # 1.3 K/mm3 (1.2-5.4) 02/06/18 04:53 [place] # 1.6 K/mm3 (0.0-0.8) H 02/06/18 04:53 Eos # 0.1 K/mm3 (0.0-0.4) 02/06/18 04:53 Baso # 0.0 K/mm3 (0.0-0.1) 02/06/18 04:53 Add Manual Diff Complete 02/07/18 02:15 Total Counted 100 08/27/18 02:15 Seg Neutrophils % 73.4 % (40.0-70.0) H 02/06/18 04:53 Seg Neuts % (Manual) 63.0 % (40.0-70.0) 02/07/18 02:15 Band Neutrophils % 1.0 % 02/07/18 02:15 Lymphocytes % (Manual) 18.0 % (13.4-35.0) 02/07/18 02:15 Reactive Lymphs % (Man) 0 % 02/07/18 02:15 Monocytes % (Manual) 10.0 % (0.0-7.3) H 02/07/18 02:15 Eosinophils % (Manual) 8.0 % (0.0-4.3) H 02/07/18 02:15 Basophils % (Manual) 0 % (0.0-1.8) 02/07/18 02:15 Metamyelocytes % 0 % 02/07/18 02:15 Myelocytes % 0 % 02/07/18 02:15 Promyelocytes % 0 % 02/07/18 02:15 Blast Cells % 0 % 02/07/18 02:15 Nucleated RBC % 1.0 % (0.0-0.9) H 02/07/18 02:15 Seg Neutrophils # 8.6 K/mm3 (1.8-7.7) H 02/06/18 04:53 Seg Neutrophils # Man 5.5 K/mm3 (1.8-7.7) 02/07/18 02:15 Band Neutrophils # 0.1 K/mm3 02/07/18 02:15 Lymphocytes # (Manual) 1.6 K/mm3 (1.2-5.4) 02/07/18 02:15 Abs React Lymphs (Man) 0.0 K/mm3 02/07/18 02:15 Monocytes # (Manual) 0.9 K/mm3 (0.0-0.8) H 02/07/18 02:15 Eosinophils # (Manual) 0.7 K/mm3 (0.0-0.4) H 02/07/18 02:15 Basophils # (Manual) 0.0 K/mm3 (0.0-0.1) 02/07/18 02:15 Metamyelocytes # 0.0 K/mm3 02/07/18 02:15 Myelocytes # 0.0 K/mm3 02/07/18 02:15 Promyelocytes # 0.0 K/mm3 02/07/18 02:15 Blast Cells # 0.0 K/mm3 02/07/18 02:15 WBC Morphology Not Reportable 02/07/18 02:15 Hypersegmented Neuts Not Reportable 02/07/18 02:15 Hyposegmented Neuts Not Reportable 02/07/18 02:15 Hypogranular Neuts Not Reportable 02/07/18 02:15 Smudge Cells Not Reportable 02/07/18 02:15 Toxic Granulation Not Reportable 02/07/18 02:15 Toxic Vacuolation Not Reportable 02/07/18 02:15 Dohle Bodies Not Reportable 02/07/18 02:15 Pelger-Huet Anomaly Not Reportable 02/07/18 02:15 Lesly Rods Not Reportable 02/07/18 02:15 Platelet Estimate Appears normal 02/07/18 02:15 Clumped Platelets Not Reportable 02/07/18 02:15 Plt Clumps, EDTA Not Reportable 02/07/18 02:15 Large Platelets Not Reportable 02/07/18 02:15 Giant Platelets Not Reportable 02/07/18 02:15 Platelet Satelliting Not Reportable 02/07/18 02:15 Plt Morphology Comment Not Reportable 02/07/18 02:15 RBC Morphology Not Reportable 02/07/18 02:15 Dimorphic RBCs Not Reportable 02/07/18 02:15 Polychromasia Not Reportable 02/07/18 02:15 Hypochromasia 1+ 02/07/18 02:15 Poikilocytosis Not Reportable 02/07/18 02:15 Anisocytosis 1+ 02/07/18 02:15 Microcytosis Not Reportable 02/07/18 02:15 Macrocytosis Not Reportable 02/07/18 02:15 Spherocytes Few 02/07/18 02:15 Pappenheimer Bodies Not Reportable 02/07/18 02:15 Sickle Cells Not Reportable 02/07/18 02:15 Target Cells Not Reportable 02/07/18 02:15 Tear Drop Cells Not Reportable 02/07/18 02:15 Ovalocytes Not Reportable 02/07/18 02:15 Helmet Cells Not Reportable 02/07/18 02:15 [place]-Jet Bodies Not Reportable 02/07/18 02:15 [place] Rings Not Reportable 02/07/18 02:15 [place] Cells Not Reportable 02/07/18 02:15 Bite Cells Not Reportable 02/07/18 02:15 Crenated Cell Not Reportable 02/07/18 02:15 Elliptocytes Not Reportable 02/07/18 02:15 Acanthocytes (Spur) Not Reportable 02/07/18 02:15 [place]leaux Not Reportable 02/07/18 02:15 Hemoglobin C Crystals Not Reportable 02/07/18 02:15 Schistocytes Not Reportable 02/07/18 02:15 Malaria parasites Not Reportable 02/07/18 02:15 Abel Bodies Not Reportable 02/07/18 02:15 Hem Pathologist Commnt No 02/07/18 02:15 PT 11.6 Sec. (12.2-14.9) L 02/01/18 04:17 INR 0.81 (0.87-1.13) L 02/01/18 04:17 APTT 24.7 Sec. (24.2-36.6) 02/01/18 04:17 POC ABG pH 7.457 (7.35-7.45) H 02/05/18 16:09 POC ABG pCO2 43.4 (35-45) 02/05/18 16:09 POC ABG pO2 85 (80-105) 02/05/18 16:09 POC ABG HCO3 30.7 02/05/18 16:09 POC ABG Total CO2 32 02/05/18 16:09 POC ABG O2 Sat 97 02/05/18 16:09 POC ABG Base Excess 7 02/05/18 16:09 FiO2 30 % 02/05/18 16:09 Sodium 136 mmol/L (137-145) L 02/07/18 02:15 Potassium 3.0 mmol/L (3.6-5.0) L D 02/07/18 02:15 Chloride 99.8 mmol/L (98-107) 02/07/18 02:15 Carbon Dioxide 26 mmol/L (22-30) 02/07/18 02:15 Anion Gap 13 mmol/L 02/07/18 02:15 BUN 5 mg/dL (9-20) L 02/07/18 02:15 Creatinine 0.5 mg/dL (0.8-1.5) L 02/07/18 02:15 Estimated GFR > 60 ml/min 02/07/18 02:15 BUN/Creatinine Ratio 10 % 02/07/18 02:15 Glucose 92 mg/dL (75-100) 02/07/18 02:15 Calcium 8.4 mg/dL (8.4-10.2) 02/07/18 02:15 Phosphorus 3.30 mg/dL (2.5-4.5) D 02/06/18 06:00 Magnesium 2.10 mg/dL (1.7-2.3) 02/06/18 06:00 Total Bilirubin 1.00 mg/dL (0.1-1.2) 02/03/18 04:51 AST 42 units/L (5-40) H 02/03/18 04:51 ALT 21 units/L (7-56) 02/03/18 04:51 Alkaline Phosphatase 36 units/L (35-129) 02/03/18 04:51 Total Protein 5.6 g/dL (6.3-8.2) L D 02/03/18 04:51 Albumin 2.6 g/dL (3.9-5) L 02/03/18 04:51 Albumin/Globulin Ratio 0.9 % 02/03/18 04:51 Triglycerides 55 mg/dL (2-149) 02/04/18 11:57 Lipase 49 units/L (13-60) 02/01/18 04:17 Plasma/Serum Alcohol 0.31 % (0-0.07) H 02/01/18 04:56 Hepatitis A IgM Ab Non-reactive (NonReactive) 02/03/18 04:51 Hep Bs Antigen Non-reactive (Negative) 02/03/18 04:51 Hep B Core IgM Ab Non-reactive (NonReactive) 02/03/18 04:51 Hepatitis C Antibody Reactive (NonReactive) A 02/03/18 04:51 Blood Type O POSITIVE 02/01/18 04:17 Antibody Screen Negative 02/01/18 04:17
[2018-02-07] MEDS: PROTONIX FEEDTUBE SCH (09:38)
[2018-02-07] MEDS: VITAMIN B-1 PO SCH (09:38)
[2018-02-07] MEDS: THERAGRAN Tab PO SCH (09:40)
[2018-02-07] MEDS: HABITROL TD SCH (09:40)
[2018-02-07] MEDS ORDERED: KCL 40 MEQ in NACL 0.9% 500 ML 500 ML IV ONE ×2 (11:00→16:00)
[2018-02-07 11:25] VITALS: BP 129/76
--- NOTE | 2018-02-07 12:24 | Discharge Summary ---
Providers - Providers Date of Admission: 02/01/18 06:22 Attending physician: JEN RAMIREZ MD 02/01/18 05:10 Consult to Physician [CONS] Stat Comment: Dr. Hernandes spoke with Dr. Bang @ [id number] Consulting Provider: SOFIE BANG Physician Instructions: Reason For Exam: upper GI bleed 02/01/18 06:25 Consult to Physician [CONS] Routine Comment: Dr. Walton notified @ [id number] Consulting Provider: LORENZO HARRISON Physician Instructions: Reason For Exam: ICU ADMISSION FOR ACTIVE G.I BLEEDING 02/01/18 10:29 Consult to Dietitian/Nutrition [CONS] Routine Physician Instructions: Reason For Exam: Reason for Consult: Write/Manage Tube Feeding 02/03/18 13:16 Consult to Dietitian/Nutrition [CONS] Routine Physician Instructions: Reason For Exam: Reason for Consult: Write/Manage Tube Feeding 02/04/18 19:00 Consult to Physician [CONS] Urgent Comment: Consulting Provider: MAMIE BENNETT Physician Instructions: Reason For Exam: nasal bleeding 02/06/18 07:06 Speech Therapy Evaluation and Treat [CONS] Routine Reason For Exam: Pt extubated within 24 hours, unable to use straw 02/07/18 08:35 Physical Therapy Evaluation and Treat [CONS] Routine Comment: Reason For Exam: weakness Primary care physician: [employer] F[employer]IT[employer] Hospitalization Condition: Stable Disposition: DC-30 STILL A PATIENT Core Measure Documentation - Palliative Care Palliative Care/ Comfort Measures: Not Applicable Exam - Constitutional Vitals: Temp Pulse Resp BP Pulse Ox 99.4 F 103 H 20 129/76 98 02/07/18 11:23 02/07/18 11:23 02/07/18 11:23 02/07/18 11:23 02/07/18 11:23 Plan Follow up with: PRIMARY CARE, [Primary Care Provider] - 3-5 Days Forms: Accompanied Note Prescriptions: Multivitamin with Iron [Children's Vitamins with Iron] 1 each PO DAILY #30 tab.chew Nicotine [Habitrol] 21 mg TD QDAY #30 patch Pantoprazole [Protonix] 40 mg PO QDAY #30 tablet Thiamine [Vitamin B-1] 100 mg PO QDAY #30 tablet
--- NOTE | 2018-02-07 12:49 | Progress Note ---
Assessment and Plan Acute Hypoxemic Respiratory Failure on MVS Massive Epistaxis (Post Traumatic) Possible G.I. Bleed H/O EtOH Abuse Anemia (Macrocytic) Hypokalemia - continues doing well post extubation - KCL replaced by attending - PT/OT as tolertaed - continue daily MVI - continue CIWA protocol and watch for DT's - continue GI prophylaxis - EGD reviewed ; no active bleeding (manage per GI recs otherwise) - continue other care per attending / other consultants - d/c planning Ok respiratory-tomlinson .... re-evaluate in am & prn ....... 25' Subjective Date of service: 02/07/18 Principal diagnosis: Acute GI Bleeding; EtOH Abuse; Hematemesis Interval history: Patient is seen today for: Acute GI Bleeding; EtOH Abuse; Hematemesis; Massive Epistaxis Seen and examined at bedside; 24hour events reviewed; nursing and respiratory care staff consulted; no adverse overnight events reported to me; resting in bed ; No N/V/F/C; no chest pains or palpitations; No S&S of significant DT's Objective Vital Signs - 12hr 02/07/18 02/07/18 02/07/18 05:35 10:00 11:23 Temperature 98.7 F 99.4 F Pulse Rate 103 H 103 H Pulse Rate [ 73 Left Dorsalis Pedis] Pulse Rate [ 73 Right Dorsalis Pedis] Respiratory 26 H 20 Rate Blood Pressure 132/73 129/76 O2 Sat by Pulse 92 98 98 Oximetry Constitutional: no acute distress, alert, other (middle aged AAM normocephalic and atraumatic on MVS) Eyes: non-icteric ENT: oropharynx moist, other (extubated) Neck: supple, no lymphadenopathy, no JVD, other (mallampati 2) Effort: normal Ascultation: Bilateral: diminished breath sounds, rhonchi (scant in bases) Percussion: Bilateral: not dull Cardiovascular: regular rate and rhythm, other (No R/M) Gastrointestinal: normoactive bowel sounds, soft, non-tender, non-distended, other (No palpable HSM) Integumentary: other (poor turgor) Extremities: no cyanosis, no edema, pulses normal, no ischemia or petechiae Neurologic: normal mental status, non-focal exam (grossly), pupils equal and round, motor strength normal and Psychiatric: mood appropriate, affect normal CBC and BMP: 02/07/18 02:15 02/07/18 02:15 ABG, PT/INR, D-dimer: ABG POC ABG pH 7.457 (7.35-7.45) H 02/05/18 16:09 POC ABG pCO2 43.4 (35-45) 02/05/18 16:09 POC ABG pO2 85 (80-105) 02/05/18 16:09 POC ABG HCO3 30.7 02/05/18 16:09 POC ABG Total CO2 32 02/05/18 16:09 POC ABG O2 Sat 97 02/05/18 16:09 PT/INR, D-dimer PT 11.6 Sec. (12.2-14.9) L 02/01/18 04:17 INR 0.81 (0.87-1.13) L 02/01/18 04:17 Abnormal lab findings: Abnormal Labs 02/01/18 02/01/18 02/01/18 04:17 04:17 04:17 WBC RBC Hgb 15.3 H Hct MCV 100 H MCH 34 H MCHC RDW Plt Count Lymph % (Auto) 45.8 H [place] % (Auto) 7.5 H Lymph # [place] # Seg Neutrophils % Monocytes % (Manual) Eosinophils % (Manual) Nucleated RBC % Seg Neutrophils # Monocytes # (Manual) Eosinophils # (Manual) PT 11.6 L INR 0.81 L POC ABG pH POC ABG pCO2 POC ABG pO2 Sodium Potassium Chloride BUN 7 L Creatinine 0.5 L Glucose 107 H Calcium Phosphorus Magnesium AST 107 H Total Protein Albumin Plasma/Serum Alcohol Hepatitis C Antibody 02/01/18 02/01/18 02/01/18 04:56 07:18 13:04 WBC RBC 3.33 L Hgb 11.1 L Hct 33.2 L D 32.2 L MCV 100 H MCH 36 H MCHC 36 H RDW Plt Count Lymph % (Auto) [place] % (Auto) Lymph # [place] # Seg Neutrophils % Monocytes % (Manual) Eosinophils % (Manual) Nucleated RBC % Seg Neutrophils # Monocytes # (Manual) Eosinophils # (Manual) PT INR POC ABG pH POC ABG pCO2 POC ABG pO2 Sodium Potassium Chloride BUN Creatinine Glucose Calcium Phosphorus Magnesium AST Total Protein Albumin Plasma/Serum Alcohol 0.31 H Hepatitis C Antibody 02/01/18 02/01/18 02/01/18 14:08 14:41 17:22 WBC RBC Hgb 10.7 L Hct 31.2 L MCV MCH MCHC RDW Plt Count Lymph % (Auto) [place] % (Auto) Lymph # [place] # Seg Neutrophils % Monocytes % (Manual) Eosinophils % (Manual) Nucleated RBC % Seg Neutrophils # Monocytes # (Manual) Eosinophils # (Manual) PT INR POC ABG pH 7.287 L 7.330 L POC ABG pCO2 50.0 H POC ABG pO2 54 L 114 H Sodium Potassium Chloride BUN Creatinine Glucose Calcium Phosphorus Magnesium AST Total Protein Albumin Plasma/Serum Alcohol Hepatitis C Antibody 02/02/18 02/02/18 02/03/18 00:17 05:28 04:51 WBC RBC Hgb 9.8 L Hct 28.3 L MCV MCH MCHC RDW Plt Count Lymph % (Auto) [place] % (Auto) Lymph # [place] # Seg Neutrophils % Monocytes % (Manual) Eosinophils % (Manual) Nucleated RBC % Seg Neutrophils # Monocytes # (Manual) Eosinophils # (Manual) PT INR POC ABG pH 7.510 H POC ABG pCO2 POC ABG pO2 129 H Sodium Potassium Chloride BUN Creatinine Glucose Calcium Phosphorus Magnesium AST Total Protein Albumin Plasma/Serum Alcohol Hepatitis C Antibody Reactive A 02/03/18 02/03/18 02/03/18 04:51 04:51 07:20 WBC 12.9 H RBC 2.51 L Hgb 8.6 L Hct 25.0 L MCV 100 H MCH 34 H MCHC 35 H RDW Plt Count 123 L Lymph % (Auto) 10.9 L [place] % (Auto) Lymph # [place] # Seg Neutrophils % 82.3 H Monocytes % (Manual) Eosinophils % (Manual) Nucleated RBC % Seg Neutrophils # 10.6 H Monocytes # (Manual) Eosinophils # (Manual) PT INR POC ABG pH 7.501 H POC ABG pCO2 POC ABG pO2 Sodium Potassium 3.0 L D Chloride BUN 6 L Creatinine 0.5 L Glucose 114 H Calcium 7.8 L D Phosphorus Magnesium AST 42 H Total Protein 5.6 L D Albumin 2.6 L Plasma/Serum Alcohol Hepatitis C Antibody 02/04/18 02/04/18 02/04/18 05:34 11:43 14:30 WBC RBC Hgb Hct MCV MCH MCHC RDW Plt Count Lymph % (Auto) [place] % (Auto) Lymph # [place] # Seg Neutrophils % Monocytes % (Manual) Eosinophils % (Manual) Nucleated RBC % Seg Neutrophils # Monocytes # (Manual) Eosinophils # (Manual) PT INR POC ABG pH 7.533 H 7.470 H POC ABG pCO2 32.4 L POC ABG pO2 106 H Sodium Potassium 3.0 L Chloride BUN 5 L Creatinine 0.4 L Glucose 130 H Calcium 8.1 L Phosphorus 2.20 L Magnesium 1.60 L AST Total Protein Albumin Plasma/Serum Alcohol Hepatitis C Antibody 02/04/18 02/05/18 02/05/18 14:30 04:11 04:32 WBC 14.8 H 12.7 H RBC 2.56 L 2.31 L Hgb 8.9 L 8.0 L Hct 25.8 L 23.1 L MCV 101 H 100 H MCH 35 H 35 H MCHC 35 H RDW 13.1 L 13.0 L Plt Count Lymph % (Auto) 7.5 L 10.3 L [place] % (Auto) 9.3 H 10.9 H Lymph # 1.1 L [place] # 1.4 H 1.4 H Seg Neutrophils % 82.3 H 77.7 H Monocytes % (Manual) Eosinophils % (Manual) Nucleated RBC % Seg Neutrophils # 12.2 H 9.8 H Monocytes # (Manual) Eosinophils # (Manual) PT INR POC ABG pH 7.471 H POC ABG pCO2 POC ABG pO2 Sodium Potassium Chloride BUN Creatinine Glucose Calcium Phosphorus Magnesium AST Total Protein Albumin Plasma/Serum Alcohol Hepatitis C Antibody 02/05/18 02/05/18 02/05/18 04:32 08:14 08:14 WBC RBC Hgb Hct MCV MCH MCHC RDW Plt Count Lymph % (Auto) [place] % (Auto) Lymph # [place] # Seg Neutrophils % Monocytes % (Manual) Eosinophils % (Manual) Nucleated RBC % Seg Neutrophils # Monocytes # (Manual) Eosinophils # (Manual) PT INR POC ABG pH POC ABG pCO2 POC ABG pO2 Sodium 135 L 135 L Potassium 3.1 L 3.0 L Chloride 97.8 L 95.4 L BUN 6 L 6 L Creatinine 0.4 L 0.4 L Glucose 146 H 154 H Calcium 7.8 L 7.9 L Phosphorus Magnesium 1.50 L AST Total Protein Albumin Plasma/Serum Alcohol Hepatitis C Antibody 02/05/18 02/05/18 02/05/18 08:14 16:09 22:39 WBC RBC Hgb Hct MCV MCH MCHC RDW Plt Count Lymph % (Auto) [place] % (Auto) Lymph # [place] # Seg Neutrophils % Monocytes % (Manual) Eosinophils % (Manual) Nucleated RBC % Seg Neutrophils # Monocytes # (Manual) Eosinophils # (Manual) PT INR POC ABG pH 7.457 H POC ABG pCO2 POC ABG pO2 Sodium 135 L Potassium 3.2 L Chloride 96.0 L BUN 5 L Creatinine 0.4 L Glucose Calcium Phosphorus 2.00 L 1.90 L Magnesium AST Total Protein Albumin Plasma/Serum Alcohol Hepatitis C Antibody 02/06/18 02/06/18 02/07/18 04:53 04:53 02:15 WBC 11.7 H RBC 2.15 L 2.17 L Hgb 7.5 L 7.6 L Hct 21.4 L 21.8 L MCV 100 H 100 H MCH 35 H 35 H MCHC 35 H 35 H RDW 12.8 L 12.7 L Plt Count Lymph % (Auto) 11.3 L [place] % (Auto) 13.9 H Lymph # [place] # 1.6 H Seg Neutrophils % 73.4 H Monocytes % (Manual) 10.0 H Eosinophils % (Manual) 8.0 H Nucleated RBC % 1.0 H Seg Neutrophils # 8.6 H Monocytes # (Manual) 0.9 H Eosinophils # (Manual) 0.7 H PT INR POC ABG pH POC ABG pCO2 POC ABG pO2 Sodium Potassium Chloride BUN 5 L Creatinine 0.4 L Glucose Calcium 8.1 L Phosphorus Magnesium AST Total Protein Albumin Plasma/Serum Alcohol Hepatitis C Antibody 02/07/18 02:15 WBC RBC Hgb Hct MCV MCH MCHC RDW Plt Count Lymph % (Auto) [place] % (Auto) Lymph # [place] # Seg Neutrophils % Monocytes % (Manual) Eosinophils % (Manual) Nucleated RBC % Seg Neutrophils # Monocytes # (Manual) Eosinophils # (Manual) PT INR POC ABG pH POC ABG pCO2 POC ABG pO2 Sodium 136 L Potassium 3.0 L D Chloride BUN 5 L Creatinine 0.5 L Glucose Calcium Phosphorus Magnesium AST Total Protein Albumin Plasma/Serum Alcohol Hepatitis C Antibody Chest x-ray: image reviewed (resolving bibasilar infiltrates) Allied health notes reviewed: nursing
[2018-02-07] MEDS ORDERED: K-DUR PO ONE (15:06)
== END 2018-02-07 14:52 | disposition home health service (06) | DRG 207 ==
LOC: ED 02:12 → CC1 06:22 → 3A 02-06 18:43
PROVIDERS: ADMIT Internal Medicine; ATTEND Internal Medicine
PROC: 5A1955Z Respiratory Ventilation, Greater than 96 Consecutive Hours (ICD-10-PCS; principal; 2018-02-01)
PROC: 0BH17EZ Insertion of Endotracheal Airway into Trachea, Via Natural or Artificial Opening (ICD-10-PCS; 2018-02-01)
PROC: 0DJ08ZZ Inspection of Upper Intestinal Tract, Via Natural or Artificial Opening Endoscopic (ICD-10-PCS; 2018-02-01)
PROC: 4A033R1 Measurement of Arterial Saturation, Peripheral, Percutaneous Approach (ICD-10-PCS; 2018-02-05)
DX: J96.01 Acute respiratory failure with hypoxia (principal); K92.2 Gastrointestinal hemorrhage, unspecified; R04.0 Epistaxis; D64.9 Anemia, unspecified; E87.6 Hypokalemia; F10.10 Alcohol abuse, uncomplicated; F17.210 Nicotine dependence, cigarettes, uncomplicated
CPT/HCPCS: 36415; 36600; 71045; 74018; 76700; 80048; 80053; 80074; 80320; 82803; 83690; 83735; 84100; 84478; 85007; 85014; 85018; 85025; 85610; 85730; 86850; 86900; 86901; 87070; 87205; 87517; 87902; 93005; 93010; 94002; 94003; 94760; 96361; 96374; 96375; A6250; C9113; G0480; J0330; J2060; J2250; J2354; J2370; J2405; J2704; J3010; J3475; J3480; J7030; J7040; J7050